=== PATIENT | female | born 1950 | race Caucasian/White ===

== ENCOUNTER 2017-05-08 00:42 | Inpatient (IN) | payer MEDICARE, OTHER ==
[~2017-05-08] VITALS: Ht 154.9 cm; Wt 65.9 kg
[2017-05-08] VITALS (14 sets, daily range): BP systolic 100–159; BP diastolic 56–82; PULSE 77–106; RESP 16–33; Ht 154.9 cm; Wt 65.9 kg
[~2017-05-08 00:42] MED LIST: ADV25050 INHALATION; ALBU18HF INH; ALPR0.254 PO; CHOL2000 PO; DOCU-144 PO; FLUT16SP17 NASAL; HYDR473S13 PO; LAS20 PO; LEVO500T72 PO; LOSA1TAB9 PO; MCN2C47 VAG; METH500T PO; NAPR-260 PO; PIRF267C PO; PRED10TA PO
[2017-05-08] MEDS ORDERED: SOD CHLORIDE 0.9% 500 ML IV STA (01:23)
[2017-05-08] MEDS ORDERED: METHYLPREDNISOLONE 125 MG INJ IV STA (01:23)
[2017-05-08] MEDS ORDERED: ALBUTEROL 0.5% (NEB) 2.5 MG/0.5 ML AMP INH STA (01:23)
[2017-05-08 01:53] LABS: ADD SCAN DIFF NO
[2017-05-08 01:55] LABS: BASOPHILS % 0.2 % (0.0-2.0); EOSINOPHILS # 0.2 10^3/ul (0.0-0.5); HEMATOCRIT 40.8 % (37.0-47.0); HEMOGLOBIN 12.8 g/dl (12.0-16.0); LYMPHOCYTES # 0.9 10^3/ul (0.8-2.9); LYMPHOCYTES % 10.3 % (15.0-51.0); MEAN CORPUSCULAR HEMOGLOBIN 30.2 pg (29.0-33.0); MEAN CORPUSCULAR HGB CONC 31.4 g/dl (32.0-37.0); MEAN CORPUSCULAR VOLUME 96.2 fl (82.0-101.0); MONOCYTE # 0.7 10^3/ul (0.3-0.9); MONOCYTES % 8.2 % (0.0-11.0); NEUTROPHILS % 78.7 % (39.0-77.0); RED BLOOD COUNT 4.24 10^6/ul (4.20-5.40); RED CELL DISTRIBUTION WIDTH 14.6 % (11.5-14.5); WHITE BLOOD COUNT 8.9 10^3/ul (4.8-10.8)
--- NOTE | 2017-05-08 02:05 | RADRPT ---
PROCEDURE: Chest. CLINICAL INDICATION: Chest pain. TECHNIQUE: Single frontal view of the chest was obtained. COMPARISON: 10/09/2016. FINDINGS: The cardiac silhouette is enlarged. The aortic arch is calcified. There are increased interstitial markings bilaterally. There is no pleural effusion. There is no pneumothorax. IMPRESSION: Interstitial pulmonary fibrosis with probable underlying interstitial edema and/or infiltrates. Cardiomegaly and aortic atherosclerosis. .Ronald Sanders MD, MD Date Time Electronically viewed and signed by .Ronald Sanders MD, MD on 05/08/2017 02:05 .T/
[2017-05-08 02:16] LABS: ANION GAP 10 (8-16); BLOOD UREA NITROGEN 17 mg/dl (7-20); CALCIUM 8.1 mg/dl (8.4-10.2); CARBON DIOXIDE 37 mmol/L (21-31); CHLORIDE 98 mmol/L (97-110); CREATININE 0.63 mg/dl (0.44-1.00); GLUCOSE 96 mg/dl (70-220); POTASSIUM 3.8 mmol/L (3.5-5.1); SODIUM 141 mmol/L (135-144)
[2017-05-08] MEDS ORDERED: ISOS20TA19 PO (02:28)
[2017-05-08] MEDS ORDERED: ASPI-664 PO (02:28)
[2017-05-08] MEDS ORDERED: LOSA100T7 PO (02:28)
[2017-05-08] MEDS ORDERED: SERT25TA83 PO (02:29)
[2017-05-08 02:35] LABS: TROPONIN-I < 0.012 ng/ml (0.00-0.12)
[2017-05-08 02:45] LABS: PLATELET COUNT 129 10^3/UL (140-415)
[2017-05-08 02:46] LABS: PLATELET ESTIMATE PLT APPEAR DECREASED
--- NOTE | 2017-05-08 02:59 | ERA ---
ER Documentation Chief Complaint Date/Time DATE: 05/08/17 TIME: 02:59 Chief Complaint SOB HPI This is 67-year-old female with past medical history of pulmonary fibrosis, COPD , essential hypertension, Vit D deficiency, GERD, DJD, Chronic Vertigo he was seen by nursing facility for low oxygen saturation. The patient is on BiPAP and oxygen saturations dropped to 75% while on BiPAP. EMS put her on CPAP and her sats went up to 95%. The patient states she has had a cough for about a week now with productive sputum. She has no chest pain no fever. On arrival she having increased work of breathing with respiratory rate in the 50s. She was put on BiPAP. Emergency department she tolerated it well ROS All systems reviewed and are negative except as per history of present illness. Medications Home Meds Active Scripts Furosemide (Lasix) 20 Mg Tab, 20 MG PO DAILY for 10 Days, TAB Prov:DARLENE THOMASON 10/16/16 Prednisone (Prednisone) 10 Mg Tab, 10 MG PO DAILY, #30 TAB 1. Take 40mg by mouth daily for 3 days 2. then 30mg by mouth daily for 3 days 3. then 20mg by mouth daily for 3 days 4. then 10mg by mouth daily for 3 days Prov:DARLENE THOMASON 10/16/16 Levofloxacin* (Levaquin*) 500 Mg Tablet, 500 MG PO DAILY@06 for 6 Days, TAB Prov:DARLENE THOMASON 10/16/16 Alprazolam* (Alprazolam*) 0.25 Mg Tablet, 0.25 MG PO Q8H Y for ANXIETY for 30 Days, TAB Prov:DARLENE THOMASON 10/16/16 Reported Medications Sertraline Hcl* (Sertraline Hcl*) 25 Mg Tablet, 25 MG PO DAILY, #30 TAB 05/08/17 Losartan Potassium* (Losartan Potassium*) 100 Mg Tablet, 100 MG PO DAILY, TAB 05/08/17 Isosorbide Dinitrate* (Isosorbide Dinitrate*) 20 Mg Tablet, 20 MG PO TID, TAB 05/08/17 Aspirin* (Aspirin* EC) 81 Mg Tablet.dr, 81 MG PO DAILY, TAB 05/08/17 Pirfenidone (Esbriet) 267 Mg Capsule, 801 MG PO TID, CAP 10/09/16 Discontinued Reported Medications Docusate Sodium* (Colace*) 100 Mg Capsule, 100 MG PO DAILY 04/09/10 Losartan-Hydrochlorothiazide (Hyzaar) 1 Tab Tablet, 1 TAB PO DAILY 04/09/10 Discontinued Scripts Fluticasone Propionate* (Fluticasone Propionate* Nasal) 50 Mcg/Struthers - 16 Gm Struthers.susp, 1 SPRAY NASAL BID, #2 Prov:DARLENE THOMASON 10/16/16 Salmeterol Xinaf/Fluticasone* (Advair*) 250-50 Diskus Inhaler, 1 INH INHALATION BID for 30 Days, #1 INHALER Prov:DARLENE THOMASON 10/16/16 Albuterol Sulfate* (Ventolin HFA*) 18 Gm Hfa.aer.ad, 2 PUFF INH Q4H Y for WHEEZING AND SOB for 30 Days Prov:DARLENE THOMASON 10/16/16 Methocarbamol* (Robaxin*) 500 Mg Tab, 500 MG PO Q8, #10 TAB Prov:DAYNA ALANIS DO 12/23/15 Naproxen* (Naprosyn*) 500 Mg Tablet, 500 MG PO BID Y for PAIN AND/OR INFLAMMATION, #30 TAB Prov:DAYNA ALANIS DO 12/23/15 Miconazole Nitrate* (Miconazole*) 1 Applic Cr, 1 APPLIC VAG DAILY, #5 1 Refill Prov:NEO SWANSON MD 07/09/15 Hydrocodone-Homatropine* (Hydrocodone-Homatropine*) 5 Ml Syrup, 5 ML PO Q6 Y for COUGH, #1 Prov:NEO SWANSON MD 07/09/15 Cholecalciferol* (Vitamin D3*) 2,000 Unit Cap, 2000 UNIT PO DAILY, #30 CAP Prov:NEO SWANSON MD 07/09/15 Allergies Allergies: Coded Allergies: Penicillins (Unverified Allergy, Mild, RASH, 05/08/17) nitrofurantoin (Unverified Allergy, Mild, rash, 05/08/17) PMhx/Soc History of Surgery: Yes (hysterectomy, R knee sx, abd hernia repair, c/sx3, gb , bilat breast reducti) Anesthesia Reaction: No Hx Neurological Disorder: Yes (CHRONIC VERTIGO) Hx Respiratory Disorders: Yes (PULMONARY FIBROSIS,COPD,O2 DEPENDENT AT HOME,) Hx Cardiac Disorders: Yes (HTN,CHF) Hx Psychiatric Problems: No Hx Miscellaneous Medical Probl: Yes (WENDY, COPD,vit D deficiency) Hx Alcohol Use: No Hx Substance Use: No Hx Tobacco Use: No Smoking Status: Former smoker FmHx Family History: No coronary disease Physical Exam Vitals Vital Signs Date Time Temp Pulse Resp B/P Pulse Ox O2 Delivery O2 Flow Rate FiO2 05/08/17 01:53 85 24 143/95 99 05/08/17 01:47 87 22 143/97 99 BIPAP 05/08/17 00:55 95 100 100 Physical Exam Const: [Well-developed, well-nourished] Head: [Atraumatic, normocephalic] Eyes: [Normal Conjunctiva, PERRLA, EOMI, normal sclera, no nystagmus] ENT: [Normal External Ears, Nose and Mouth, moist mucus membranes.] Neck: [Full range of motion. No meningismus, no lymphadenopathy.] Resp: [Decreased breath sounds bilaterally with some diffuse wheezing, increased work of breathing, moderate to severe Cardio: Regular rate and rhythm no murmurs, S1 S2 present] Abd: [Soft, non tender x 4, non distended. Normal bowel sounds, no guarding or rebound, no pulsitile abdominal masses or bruits] Skin: [No petechiae or rashes, no ecchymosis , no maculopapular rash] Back: [No midline or flank tenderness] Ext: [No cyanosis, or edema, FROM x 4, normal inspection, neurovascularly intact x 4] Neur: [Awake and alert, STR 5/5 x 4, sensation intact x 4, no focal findings, cerebellum intact] Psych: [Normal Mood and Affect] Result Diagram: 05/08/17 01305/08/17 013 Results 24 hrs Laboratory Tests Test 05/08/17 01:30 White Blood Count 8.910^3/ul Red Blood Count 4.2410^6/ul Hemoglobin 12.8g/dl Hematocrit 40.8% Mean Corpuscular Volume 96.2fl Mean Corpuscular Hemoglobin 30.2pg Mean Corpuscular Hemoglobin Concent 31.4g/dl Red Cell Distribution Width 14.6% Platelet Count 51555^3/UL Mean Platelet Volume 11.0fl Neutrophils % 78.7% Lymphocytes % 10.3% Monocytes % 8.2% Eosinophils % 2.0% Basophils % 0.2% Nucleated Red Blood Cells % 0.0/100WBC Neutrophils # 7.010^3/ul Lymphocytes # 0.910^3/ul Monocytes # 0.710^3/ul Eosinophils # 0.210^3/ul Basophils # 0.010^3/ul Nucleated Red Blood Cells # 0.010^3/ul Platelet Estimate PLT APPEAR DECREASED Sodium Level 141mmol/L Potassium Level 3.8mmol/L Chloride Level 98mmol/L Carbon Dioxide Level 37mmol/L Anion Gap 10 Blood Urea Nitrogen 17mg/dl Creatinine 0.63mg/dl Glucose Level 96mg/dl Calcium Level 8.1mg/dl Troponin I < 0.012ng/ml Current Medications Medications (Trade) Dose Ordered Sig/Asiya Route PRN Reason Start Time Stop Time Status Last Admin Dose Admin Sodium Chloride (NS) 500 ml @ 500 mls/hr Q1H STAT IV 05/08/17 01:23 05/08/17 02:22 DC 05/08/17 01:45 Albuterol (Proventil 0.5% (Neb)) 10 mg ONCE STAT INH 05/08/17 01:23 05/08/17 01:26 DC 05/08/17 01:35 Methylprednisolone Sodium Succinate 125 mg 125 mg ONCE STAT IV 05/08/17 01:23 05/08/17 01:26 DC 05/08/17 01:45 Vancomycin HCl 250 ml @ 125 mls/hr ONCE STAT IVPB 05/08/17 02:54 05/08/17 04:53 UNV Ceftriaxone Sodium (Rocephin) 50 ml @ 100 mls/hr ONCE STAT IVPB 05/08/17 02:54 05/08/17 03:23 UNV Procedures/MDM PROCEDURE: Chest. CLINICAL INDICATION: Chest pain. TECHNIQUE: Single frontal view of the chest was obtained. COMPARISON: 10/09/2016. FINDINGS: The cardiac silhouette is enlarged. The aortic arch is calcified. There are increased interstitial markings bilaterally. There is no pleural effusion. There is no pneumothorax. IMPRESSION: Interstitial pulmonary fibrosis with probable underlying interstitial edema and/ or infiltrates. Cardiomegaly and aortic atherosclerosis. .Ronald Sanders MD, MD Date Time Electronically viewed and signed by .Ronald Sanders MD, MD on 05/08/2017 02:05 .T/ CC: JAQUELINE COX DO Patient was put immediately on BiPAP on arrival Patient received IV Solu-Medrol with 1 hour of albuterol nebulizer treatment. The patient's had blood cultures and given Rocephin and vancomycin. Her BNP is currently pending. ABG is also pending. Patient is having some respiratory distress likely due to pulmonary fibrosis and COPD but has underlying interstitial edema/infiltrates. Will admit for pulmonary therapy and antibiotics. Respiratory rate is now normal. She is no longer in respiratory distress Critical Care Time: 30 minutes Treatments/Evaluations: Close monitoring and treatment of unstable vital signs, cardiorespiratory, and neurologic status, while maintaining tight balance of fluid, respiratory, and cardiac interventions. This time includes discussing the case with the patient and the patient's family. This time does not include all procedures stated elsewhere in this record. This time also includes reviewing old records, labs and radiological studies. This time includes examining and re-examining the patient. Additionally, this time also includes arranging care with admitting and consulting physicians. Departure Diagnosis: Primary Impression: Respiratory distress Additional Impressions: Pulmonary fibrosis Bilateral pulmonary infiltrates on chest x-ray Condition: Stable JAQUELINE COX DO May 08, 2017 02:59
[2017-05-08] MEDS ORDERED: VANCOMYCIN 1 GM (PMX) 250 ML IVPB ONE (03:08)
[2017-05-08] MEDS ORDERED: CEFTRIAXONE 1 GM/50 ML (PMX) 50 ML IVPB ONE (03:09)
[2017-05-08] MEDS ORDERED: ACETAMINOPHEN 325 MG TAB PO PRN ×2 (03:30→05:00)
[2017-05-08] MEDS ORDERED: ONDANSETRON 4 MG INJ IV PRN (03:30)
[2017-05-08 03:53] LABS: AADO2 Arterial 151.8 mmHg (7.0-24.0); Allen Test ACCEPTAB; Arterial Base Excess 8.5 mmol/L (-3.0-3); Arterial COHb 0.6 % (0.0-3.0); Arterial Fraction of Oxyhgb 98.1 % (93.0-99.0); Arterial HCO3 37.7 mmol/L (22.0-26.0); Arterial MetHb 0.3 % (0.0-1.5); Blood Gas IEPAP 15/5; MODE MASK - BIPAP
[2017-05-08] MEDS ORDERED: NACL 0.9% 3 ML SYG IV SCH (05:00)
--- NOTE | 2017-05-08 05:27 | HP ---
Date/Time of Note Date/Time of Note DATE: 05/08/17 TIME: 05:13 Assessment/Plan VTE Prophylaxis VTE Prophylaxis Intervention: SCD's Assessment/Plan Chief Complaint/Hosp Course This is a 59-year-old female being admitted to the telemetry floor for: 1. Acute pulmonary fibrosis exacerbation -DuoNeb's every 4 hours, Solu-Medrol IV , trend cardiac enzymes, TSH, magnesium supplemental O2 and Levaquin 2. Essential hypertension -continue medications 3. Pulmonary Fibrosis -continue home Esbriet daily 4. GERD -continue Protonix 5. Chronic Vertigo - if need be will start antivert/scopolamine 6. Anxiety: Continue SSRI and Benzo 7. DVT GI prophylaxis SCDs, Protonix Further treatment strategy as per the clinical course Problems: HPI/ROS Admit Date/Time Admit Date/Time May 08, 2017 at 03:10 Hx of Present Illness chief complaint: shortness of breath and cough for 1 week This is 67-year-old female with past medical history of pulmonary fibrosis, COPD , essential hypertension, Vit D deficiency, GERD, DJD, Chronic Vertigo she was seen by nursing facility for low oxygen saturation. The patient is on BiPAP and oxygen saturations dropped to 75% while on BiPAP. EMS put her on CPAP and her sats went up to 95%. The patient states she has had a cough for about a week now with productive sputum. She has no chest pain no fever. On arrival she having increased work of breathing with respiratory rate in the 50s. She was put on BiPAP in Emergency department she tolerated it well. On my examination, patient appeared more comfortable on the bipap. She was in relatively good spirits. allergies: pcn, nitrofurantoin meds: see [facility] HIGH Const: As per HPI Eyes : No pain discharge or redness or change in visual acuity ENT: No pain, sore throat, congestion, congestion, dysphagia or discharge Respiratory: As per HPI Cardiovascular: No chest pain, palpitation, PND, or edema GI : no change in appetite, abdominal pain, nausea, vomiting, diarrhea, constipation, or change in the color his stool Genitourinary: No dysuria, hematuria, flank pain , discharge or CVA tenderness Musculoskeletal: No joint pain, back pain, neck pain, restricted range of motion in neck or joints Skin: No rash, bruising or hives Neuro: No headache, dizziness, syncope, seizure, focal weakness Endocrine: No polyuria, polydipsia, temperature intolerance Psych: No hallucination, depression, anxiety or suicidal ideation PMH/Family/Social Past Medical History pulmonary fibrosis, COPD, essential hypertension, Vit D deficiency, GERD, DJD, Chronic Vertigo, Vit D deficiency Past Surgical History ectopic , hysterectomy, umbilical hernia repair Family History Significant Family History: no pertinent family hx (25 years ago approximately) Social History Smoking Status: Former smoker (15 years ago) Exam/Review of Systems Vital Signs Vitals Vital Signs Date Time Temp Pulse Resp B/P Pulse Ox O2 Delivery O2 Flow Rate FiO2 05/08/17 04:45 103 98 40 05/08/17 03:33 30 150/80 BIPAP 05/08/17 03:00 5.0 Intake and Output 05/07/17 05/07/17 05/08/17 15:00 23:00 07:00 Output Total 100 ml Balance -100 ml Exam Exam General: Patient is well-developed female in mild respiratory distress. HEENT: Atraumatic, normocephalic. The pupils are equal, round and reactive. Extraocular motor are intact, currently on BiPAP Neck: Supple with full range of motion. No rigidity or meningismus Chest: Nontender Lungs: Coarse breath sounds throughout the lung javed, crackles Heart: Normal S1-S2, Regular rhythm and rate. No murmur, S3, or S4 Abdomen: Soft , nontender, nondistended , bowel sounds are present. No guarding no rebound tenderness , No masses or organomegaly. No costovertebral temporal angle mass Extremities: Normal to inspection, no edema no cyanosis Neurologic: Normal mental status, speech normal, cranial nerves II through XII are intact, motor and sensory are intact, no focal weakness Additional Comments PROCEDURE: Chest. CLINICAL INDICATION: Chest pain. TECHNIQUE: Single frontal view of the chest was obtained. COMPARISON: 10/09/2016. FINDINGS: The cardiac silhouette is enlarged. The aortic arch is calcified. There are increased interstitial markings bilaterally. There is no pleural effusion. There is no pneumothorax. IMPRESSION: Interstitial pulmonary fibrosis with probable underlying interstitial edema and/ or infiltrates. Cardiomegaly and aortic atherosclerosis. .Ronald Sanders MD, Date Time Electronically viewed and signed by .Ronald Sanders MD, on 05/08/2017 02:05 Labs Result Diagram: 05/08/17 0130 05/08/17 0130 Medications Medications Current Medications Methylprednisolone Sodium Succinate (Solu-Medrol) 40 mg Q8 IV ; Start 05/08/17 at 06:00 Ondansetron HCl (Zofran Inj) 4 mg Q6H PRN IV NAUSEA AND/OR VOMITING; Start at 05:00 Acetaminophen (Tylenol Tab) 650 mg Q6H PRN PO PAIN LEVEL 1-3 OR FEVER; Start at 05:00 Pantoprazole 40 mg 40 mg BID@06,18 IV ; Start 05/08/17 at 06:00 Vancomycin HCl (Vancocin) 250 ml @ 125 mls/hr Q24H IVPB ; Start 05/08/17 at 06: 00; Stop 05/08/17 at 07:59 SOHA KOWALSKI May 08, 2017 05:26
[2017-05-08] MEDS ORDERED: VANCOMYCIN 1 GM in NS 250 ML IVPB ONE (06:00)
[2017-05-08] MEDS ORDERED: METHYLPREDNISOLONE 40 MG INJ IV SCH (06:00)
[2017-05-08] MEDS ORDERED: FUROSEMIDE 20 MG TAB PO SCH (06:00)
[2017-05-08] MEDS ORDERED: PANTOPRAZOLE 40 MG INJ IV SCH (06:00)
[2017-05-08] MEDS ORDERED: LEVOFLOXACIN 750MG/D5W (PMX) 150 ML IVPB SCH (06:00)
[2017-05-08] MEDS ORDERED: FUROSEMIDE 20 MG INJ IV ONE (07:00)
[2017-05-08] MEDS ORDERED: [UNRECOGNIZED DRUG - REMARK] XX SCH (08:00)
[2017-05-08 08:07] LABS: AADO2 Arterial 112.7 mmHg (7.0-24.0); Allen Test ACCEPTAB; Arterial Base Excess 4.5 mmol/L (-3.0-3); Arterial Fraction of Oxyhgb 96.8 % (93.0-99.0); Arterial HCO3 31.6 mmol/L (22.0-26.0); Arterial MetHb 0.1 % (0.0-1.5); Arterial Total Hemglobin 13.9 g/dl (12.0-18.0); Blood Gas IEPAP 15/5; MODE MASK - BIPAP
[2017-05-08] MEDS: ALBUTEROL/IPRATROPIUM (NEB) 3 ML AMP HHN SCH ×4 (08:53→20:23)
[2017-05-08] MEDS: SERTRALINE 50 MG TAB PO SCH (09:12)
[2017-05-08] MEDS: LOSARTAN 50 MG TAB PO SCH (09:13)
[2017-05-08] MEDS: ISOSORBIDE DINITRATE 20 MG TAB PO SCH ×3 (09:13→20:38)
[2017-05-08] MEDS: ASPIRIN (EC) 81 MG TAB PO SCH (09:13)
--- NOTE | 2017-05-08 10:43 | PN ---
Date/Time of Note Date/Time of Note DATE: 05/08/17 TIME: 10:39 Assessment/Plan VTE Prophylaxis VTE Prophylaxis Intervention: SCD's Lines/Catheters IV [facility] Saline Lock Urinary Cath still in place: No Assessment/Plan Assessment/Plan 67 yo F with IPF on chronic home oxygen therapy presents with 4 days of increased SOB and acute on chronic hypoxia. PLAN -pulm consult for help with IPF management I ordered a high res CT chest with contrast to eval for PE and worsening of IPF, strep urine Ag, and RVP -cont empiric abx, cont steroid burst - check TSH given ?thyromegaly? -check UA/Urine culture given c/o dysuria cont home meds Subjective 24 Hr Interval Summary Free Text/Dictation Pt on 3L NC at home. States her breathing has been more short than usual for the past 4 days. Also reporting several days of dysuria. Exam/Review of Systems Vital Signs Vitals Vital Signs Date Time Temp Pulse Resp B/P Pulse Ox O2 Delivery O2 Flow Rate FiO2 05/08/17 09:08 77 05/08/17 08:54 18 95 Nasal Cannula 3.0 05/08/17 08:00 98.0 159/82 05/08/17 04:45 40 Intake and Output 05/07/17 05/07/17 05/08/17 15:00 23:00 07:00 Intake Total 200 ml Output Total 100 ml Balance 100 ml Exam mild distress, sitting at side of best soft freely mobile mass at inf neck--?thyroid? no mrg fine crackles abd soft no rashes Results Result Diagram: 05/08/17 0130 05/08/17 0130 Results 24 hrs Laboratory Tests Test 05/08/17 01:30 05/08/17 03:38 05/08/17 07:00 White Blood Count 8.9 Red Blood Count 4.24 Hemoglobin 12.8 Hematocrit 40.8 Mean Corpuscular Volume 96.2 Mean Corpuscular Hemoglobin 30.2 Mean Corpuscular Hemoglobin Concent 31.4 L Red Cell Distribution Width 14.6 H Platelet Count 129 L Mean Platelet Volume 11.0 #H Neutrophils % 78.7 H Lymphocytes % 10.3 L Monocytes % 8.2 Eosinophils % 2.0 Basophils % 0.2 Nucleated Red Blood Cells % 0.0 Neutrophils # 7.0 Lymphocytes # 0.9 Monocytes # 0.7 Eosinophils # 0.2 Basophils # 0.0 Nucleated Red Blood Cells # 0.0 Platelet Estimate PLT APPEAR DECREASED Sodium Level 141 Potassium Level 3.8 Chloride Level 98 Carbon Dioxide Level 37 H Anion Gap 10 Blood Urea Nitrogen 17 Creatinine 0.63 Glucose Level 96 Calcium Level 8.1 L Troponin I < 0.012 B-Type Natriuretic Peptide 178 H Blood Gas Specimen Source Blood arterial Blood arterial Arterial Blood Date Drawn 05/08/2017 3:42:19 AM 05/08/2017 7:50:13 AM Arterial Blood pH (Temp corrected) 7.318 L 7.359 Arterial Blood pCO2 (Temp correct) 75.2 H 57.3 H Arterial Blood pO2 (Temp corrected) 193.3 H 106.6 H Arterial Blood HCO3 37.7 H 31.6 H Arterial Blood Base Excess 8.5 H 4.5 H Arterial Blood Oxygen Saturation 99.0 H 97.9 [place] Test ACCEPTAB ACCEPTAB Arterial Blood Gas Puncture Site Right Radial Left Radial Arterial Blood Carboxyhemoglobin 0.6 1.0 Arterial Blood Methemoglobin 0.3 0.1 Blood Gas A-a O2 Differential 151.8 H 112.7 H Oxyhemoglobin Percent 98.1 96.8 Total Hemoglobin 14.0 13.9 Blood Gas Temperature 37.0 37.0 Blood Gas Respiration Rate 14.0 14.0 Blood Gas Actual Respiration Rate 40 31 Blood Gas Modality MASK - BIPAP MASK - BIPAP FiO2 60.0 40.0 Blood Gas Inspiratory Time 1.0 Blood Gas IPAP/EPAP Ratio 15 15 Blood Gas Notified Whom SHALINI MCKAY Blood Gas Notified Time 05/08/2017 3:53:16 AM 05/08/2017 8:06:57 AM Medications Medications Current Medications Ondansetron HCl (Zofran Inj) 4 mg Q6H PRN IV NAUSEA AND/OR VOMITING; Start at 05:00 Acetaminophen (Tylenol Tab) 650 mg Q6H PRN PO PAIN LEVEL 1-3 OR FEVER; Start at 05:00 Alprazolam (Xanax) 0.25 mg Q8H PRN PO ANXIETY; Start 05/08/17 at 05:30 Aspirin (Halfprin) 81 mg DAILY PO Last administered on 05/08/17t 09:13; Admin Dose 81 MG; Start 05/08/17 at 09:00 Furosemide (Lasix) 20 mg DAILY@06 PO ; Start 05/08/17 at 06:00; Status Future Hold Isosorbide Dinitrate (Isordil) 20 mg TID PO Last administered on 05/08/17 09: 13; Admin Dose 20 MG; Start 05/08/17 at 09:00 Losartan Potassium (Cozaar) 100 mg DAILY PO Last administered on 05/08/17 09: 13; Admin Dose 100 MG; Start 05/08/17 at 09:00 Sertraline HCl (Zoloft) 25 mg DAILY PO Last administered on 05/08/17 09:12; Admin Dose 25 MG; Start 05/08/17 at 09:00 Patient Own Medication 3 ea TID PO ; Start 05/08/17 at 13:00 Prednisone (Prednisone) 40 mg DAILY PO ; Start 05/09/17 at 09:00 Levofloxacin (Levaquin) 750 mg DAILY@06 PO ; Start 05/09/17 at 06:00 EDNA DELUCA MD May 08, 2017 10:43
--- NOTE | 2017-05-08 10:45 | CONS ---
Date/Time of Note Date/Time of Note DATE: 05/08/17 TIME: 10:41 Assessment/Plan Assessment/Plan Additional Assessment/Plan Chest x-ray was reviewed from today which is showing diffuse fibrosis. Assessment recommendations; 1. Patient admitted with flareup of pulmonary fibrosis currently on appropriate treatment regimen. 2. Other multiple comorbidities including hypertension, COPD, depression. Continue current treatment. Use BiPAP as needed. Consultation Date/Type/Reason Admit Date/Time May 08, 2017 at 03:10 Date of Consultation: May 08, 2017 Type of Consultation: Pulmonary Reason for Consultation Pulmonary consultation requested for evaluation of shortness of breath due to pulmonary fibrosis. History of presenting illness; patient is a pleasant 67-year-old lady who came into the hospital today with a few days history of increasing shortness of breath. Patient also has a pulse oximeter at home which was registering saturation of around 70-77%. Upon evaluation here patient was diagnosed with flareup of pulmonary fibrosis and was started on BiPAP as well as intravenous Solu-Medrol with significant improvement in symptoms. Patient has been weaned off BiPAP and is currently maintained on nasal cannula. According to patient she is feeling better since admission. Denies any high fever chills, sputum production. Past medical history; 1. Patient with history of pulmonary fibrosis. 2. Hypertension. 3. Depression. 4. Status post hysterectomy. 5. History of umbilical hernia repair. 6. COPD. Medications; reviewed. Allergies; penicillin and nitrofurantoin. Social history; patient quit smoking 15 years ago. Family history; noncontributory. Occupational history; patient has a miscellaneous occupations in the past. Review systems; denies any headache, seizures. Any sinus symptoms. Any chest pain. Shortness of breath is improving. Denies any cough or wheezing. Denies any sputum production. Denies any hemoptysis. Denies any abdominal pain nausea vomiting. Complains of chronic orthopnea. Chronic dyspnea on minimal exertion. Denies any weight change. Denies any melena or hematochezia. General exam; elderly woman, awake alert currently in no distress. Social History Smoking Status: Former smoker (15 years ago) Exam/Review of Systems Vital Signs Vitals Vital Signs Date Time Temp Pulse Resp B/P Pulse Ox O2 Delivery O2 Flow Rate FiO2 05/08/17 09:08 77 05/08/17 08:54 18 95 Nasal Cannula 3.0 05/08/17 08:00 98.0 159/82 05/08/17 04:45 40 Intake and Output 05/07/17 05/07/17 05/08/17 15:00 23:00 07:00 Intake Total 200 ml Output Total 100 ml Balance 100 ml Exam HEENT exam; supple neck, no JVD. No lymphadenopathy. Midline trachea. No thyromegaly. Patient has fair dentition. Pupils are midsize and reactive to light bilaterally. Chest exam; diminished breath sounds throughout with bilateral crackles. S1-S2 audible, no murmurs. Regular rhythm. Abdomen exam; soft, there are multiple well-healed scars present. Umbilicus is flat. Bowel sounds audible. No organomegaly felt. Extremity exam; no peripheral edema. Pulses 1+ bilaterally. No clubbing. 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 Results Result Diagram: 05/08/17 0130 05/08/17 0130 Results 24 hrs Laboratory Tests Test 05/08/17 01:30 05/08/17 03:38 05/08/17 07:00 White Blood Count 8.9 Red Blood Count 4.24 Hemoglobin 12.8 Hematocrit 40.8 Mean Corpuscular Volume 96.2 Mean Corpuscular Hemoglobin 30.2 Mean Corpuscular Hemoglobin Concent 31.4 L Red Cell Distribution Width 14.6 H Platelet Count 129 L Mean Platelet Volume 11.0 #H Neutrophils % 78.7 H Lymphocytes % 10.3 L Monocytes % 8.2 Eosinophils % 2.0 Basophils % 0.2 Nucleated Red Blood Cells % 0.0 Neutrophils # 7.0 Lymphocytes # 0.9 Monocytes # 0.7 Eosinophils # 0.2 Basophils # 0.0 Nucleated Red Blood Cells # 0.0 Platelet Estimate PLT APPEAR DECREASED Sodium Level 141 Potassium Level 3.8 Chloride Level 98 Carbon Dioxide Level 37 H Anion Gap 10 Blood Urea Nitrogen 17 Creatinine 0.63 Glucose Level 96 Calcium Level 8.1 L Troponin I < 0.012 B-Type Natriuretic Peptide 178 H Blood Gas Specimen Source Blood arterial Blood arterial Arterial Blood Date Drawn 05/08/2017 3:42:19 AM 05/08/2017 7:50:13 AM Arterial Blood pH (Temp corrected) 7.318 L 7.359 Arterial Blood pCO2 (Temp correct) 75.2 H 57.3 H Arterial Blood pO2 (Temp corrected) 193.3 H 106.6 H Arterial Blood HCO3 37.7 H 31.6 H Arterial Blood Base Excess 8.5 H 4.5 H Arterial Blood Oxygen Saturation 99.0 H 97.9 [place]aine Test ACCEPTAB ACCEPTAB Arterial Blood Gas Puncture Site Right Radial Left Radial Arterial Blood Carboxyhemoglobin 0.6 1.0 Arterial Blood Methemoglobin 0.3 0.1 Blood Gas A-a O2 Differential 151.8 H 112.7 H Oxyhemoglobin Percent 98.1 96.8 Total Hemoglobin 14.0 13.9 Blood Gas Temperature 37.0 37.0 Blood Gas Respiration Rate 14.0 14.0 Blood Gas Actual Respiration Rate 40 31 Blood Gas Modality MASK - BIPAP MASK - BIPAP FiO2 60.0 40.0 Blood Gas Inspiratory Time 1.0 Blood Gas IPAP/EPAP Ratio 24/03 24/03 Blood Gas Notified Whom SHALINI MCKAY Blood Gas Notified Time 05/08/2017 3:53:16 AM 05/08/2017 8:06:57 AM Medications Medications Current Medications Ondansetron HCl (Zofran Inj) 4 mg Q6H PRN IV NAUSEA AND/OR VOMITING; Start at 05:00 Acetaminophen (Tylenol Tab) 650 mg Q6H PRN PO PAIN LEVEL 1-3 OR FEVER; Start at 05:00 Alprazolam (Xanax) 0.25 mg Q8H PRN PO ANXIETY; Start 05/08/17 at 05:30 Aspirin (Halfprin) 81 mg DAILY PO Last administered on 05/08/17 09:13; Admin Dose 81 MG; Start 05/08/17 at 09:00 Furosemide (Lasix) 20 mg DAILY@06 PO ; Start 05/08/17 at 06:00; Status Future Hold Isosorbide Dinitrate (Isordil) 20 mg TID PO Last administered on 05/08/17 09: 13; Admin Dose 20 MG; Start 05/08/17 at 09:00 Losartan Potassium (Cozaar) 100 mg DAILY PO Last administered on 05/08/17 09: 13; Admin Dose 100 MG; Start 05/08/17 at 09:00 Sertraline HCl (Zoloft) 25 mg DAILY PO Last administered on 05/08/17 09:12; Admin Dose 25 MG; Start 05/08/17 at 09:00 Patient Own Medication 3 ea TID PO ; Start 05/08/17 at 13:00 Prednisone (Prednisone) 40 mg DAILY PO ; Start 05/09/17 at 09:00 Levofloxacin (Levaquin) 750 mg DAILY@06 PO ; Start 05/09/17 at 06:00 BREA PETERSON May 08, 2017 10:45
[2017-05-08 12:52] LABS: CREATINE KINASE 20 IU/L (23-200)
[2017-05-08 13:05] LABS: CK-MB 0.95 ng/ml (0.0-2.4)
[2017-05-08 13:08] LABS: TROPONIN-I < 0.012 ng/ml (0.00-0.12)
[2017-05-08 13:10] LABS: AADO2 Arterial 47.7 mmHg (7.0-24.0); Allen Test ACCEPTAB; Arterial Base Excess 9.3 mmol/L (-3.0-3); Arterial COHb 0.7 % (0.0-3.0); Arterial Fraction of Oxyhgb 95.3 % (93.0-99.0); Arterial HCO3 37.2 mmol/L (22.0-26.0); Arterial MetHb 0.2 % (0.0-1.5); Arterial Total Hemglobin 14.3 g/dl (12.0-18.0); MODE NASAL CANNULA
[2017-05-08] MEDS: PIRFENIDONE 267 MG PO SCH ×2 (13:48→20:38)
[2017-05-08 16:51] LABS: ADD UMIC YES; UR ASCORBIC ACID NEGATIVE (NEGATIVE); UR BILIRUBIN (Dip) NEGATIVE (NEGATIVE); UR BLOOD (Dip) 3+ mg/dL (NEGATIVE); UR CLARITY CLEAR (CLEAR); UR COLOR YELLOW (YELLOW); UR GLUCOSE (Dip) 1+ mg/dL (NEGATIVE); UR KETONES (Dip) NEGATIVE (NEGATIVE); UR LEUKOCYTE ESTERASE (Dip) 1+ Leu/ul (NEGATIVE); UR NITRITE (Dip) NEGATIVE (NEGATIVE); UR RBC 33 /HPF (0-5); UR SPECIFIC GRAVITY (Dip) 1.015 (1.003-1.030); UR SQUAMOUS EPITHELIAL CELL FEW /HPF (FEW); UR TOTAL PROTEIN (Dip) NEGATIVE (NEGATIVE); UR UROBILINOGEN (Dip) NEGATIVE (NEGATIVE)
[2017-05-08 18:50] LABS: CREATINE KINASE < 20 IU/L (23-200)
[2017-05-08 19:02] LABS: CK-MB 0.85 ng/ml (0.0-2.4)
[2017-05-08 19:03] LABS: TROPONIN-I < 0.012 ng/ml (0.00-0.12)
--- NOTE | 2017-05-08 19:04 | RADRPT ---
PROCEDURE: XR Chest. CLINICAL INDICATION: Shortness of breath. TECHNIQUE: Single frontal view. COMPARISON: 05/08/2017. 0149 hours. FINDINGS: There are are extremely low lung volumes bilaterally as seen previously. There is bilateral intersti tial pulmonary disease consistent with pulmonary fibrosis. The heart is mildly enlarged. There is calcification in the aorta consistent with atherosclerosis. There is no pleural effusion. There is no pneumothorax. IMPRESSION: 1. Low lung volumes and pulmonary fibrosis. 2. Cardiomegaly and atherosclerosis. RPTAT: QQ .Enoc Harris MD, MD Date Time Electronically viewed and signed by .Enoc Harris MD, MD on 05/08/2017 19:03 .R/
[2017-05-09] VITALS (15 sets, daily range): BP systolic 112–124; BP diastolic 59–74; PULSE 75–107; RESP 12–24
[2017-05-09] MEDS: ALBUTEROL/IPRATROPIUM (NEB) 3 ML AMP HHN SCH ×6 (01:21→20:45)
[2017-05-09] MEDS ORDERED: LEVOFLOXACIN 750 MG TABLET PO SCH (06:00)
[2017-05-09 07:25] LABS: BASOPHILS % 0.1 % (0.0-2.0); EOSINOPHILS % 0.4 % (0.0-7.0); HEMATOCRIT 36.4 % (37.0-47.0); HEMOGLOBIN 11.5 g/dl (12.0-16.0); LYMPHOCYTES # 1.2 10^3/ul (0.8-2.9); LYMPHOCYTES % 15.5 % (15.0-51.0); MEAN CORPUSCULAR HEMOGLOBIN 30.7 pg (29.0-33.0); MEAN CORPUSCULAR HGB CONC 31.6 g/dl (32.0-37.0); MEAN CORPUSCULAR VOLUME 97.1 fl (82.0-101.0); MONOCYTE # 0.6 10^3/ul (0.3-0.9); MONOCYTES % 7.6 % (0.0-11.0); NEUTROPHIL # 5.7 10^3/ul (1.6-7.5); PLATELET COUNT 126 10^3/UL (140-415); RED BLOOD COUNT 3.75 10^6/ul (4.20-5.40); RED CELL DISTRIBUTION WIDTH 14.9 % (11.5-14.5); WHITE BLOOD COUNT 7.5 10^3/ul (4.8-10.8)
[2017-05-09 07:29] LABS: ADD SCAN DIFF NO
[2017-05-09 08:05] LABS: ALBUMIN 3.6 g/dl (3.3-4.9); ALBUMIN/GLOBULIN RATIO 1.44; BILIRUBIN,INDIRECT 0.1 mg/dl (0-1.1); BILIRUBIN,TOTAL 0.1 mg/dl (0.2-1.3); CALCIUM 8.7 mg/dl (8.4-10.2); CREATININE 0.78 mg/dl (0.44-1.00); MAGNESIUM 1.6 mg/dl (1.7-2.5); POTASSIUM 3.9 mmol/L (3.5-5.1); TOTAL PROTEIN 6.1 g/dl (6.1-8.1)
--- NOTE | 2017-05-09 09:10 | RADRPT ---
PROCEDURE: XR Chest 1 view. CLINICAL INDICATION: Shortness of breath TECHNIQUE: AP views of the chest was obtained. COMPARISON: Yesterday FINDINGS: The heart is large. Calcified atherosclerosis is noted in the aorta. Elevation right hemidiaphragm is unchanged. The lungs are hypoinflated. Diffuse interstitial prominence in both lungs appears st able. Patchy alveolar infiltrates in the left lower lobe are unchanged. Atelectasis is seen at the right lung base. The osseous structures are unchanged. IMPRESSION: Cardiomegaly with calcified atherosclerosis in the aorta. Hypoinflated lungs with stable elevation of the right hemidiaphragm. Stable patchy infiltrates in the left lower lobe. Stable diffuse interstitial prominence in both lungs. Atelectasis at the right lung base. RPTAT: AA .Julian Soto MD, MD Date Time Electronically viewed and signed by .Julian Soto MD, MD on 05/09/2017 09:10 .P/
--- NOTE | 2017-05-09 09:19 | CONS ---
Date/Time of Note Date/Time of Note DATE: 05/09/17 TIME: 09:18 Assessment/Plan Assessment/Plan Additional Assessment/Plan Assessment and recommendations; 1. Patient admitted with flare up of primary fibrosis with significant clinical improvement. 2. History of COPD and depression. Continue current treatment. Consultation Date/Type/Reason Admit Date/Time May 08, 2017 at 03:10 Initial Consult Date 05/08/17 Type of Consultation: Pulmonary 24 HR Interval Summary Free Text/Dictation Patient condition stable. Reports decreased shortness of breath. Denies any coughing, wheezing. General exam; elderly woman, awake alert currently in no distress. Exam/Review of Systems Vital Signs Vitals Vital Signs Date Time Temp Pulse Resp B/P Pulse Ox O2 Delivery O2 Flow Rate FiO2 05/09/17 08:37 98.0 92 18 112/59 98 05/09/17 05:29 40 05/08/17 20:23 4.0 05/08/17 20:23 Nasal Cannula Intake and Output 05/08/17 05/08/17 05/09/17 15:00 23:00 07:00 Intake Total 300 ml 200 ml Balance 300 ml 200 ml Exam HEENT exam; supple neck, no JVD. No lymphadenopathy. Midline trachea. No thyromegaly. Patient has fair dentition. Pupils are small bilaterally. No neck masses. Chest exam; scattered crackles bilaterally. S1-S2 audible, no murmurs. Regular rhythm. Exam; soft, no organomegaly. Nontender. No distention. Bowel sounds audible. Extremity exam; no peripheral edema. No clubbing. Pulses 1+ bilaterally. 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 Results Result Diagram: 05/09/17 0640 05/09/17 0640 Results 24 hrs Laboratory Tests Test 05/08/17 12:09 05/08/17 13:00 05/08/17 15:00 05/08/17 18:00 Creatine Kinase 20 L < 20 L Creatine Kinase Index 4.8 Creatinine Kinase MB (Mass) 0.95 0.85 Troponin I < 0.012 < 0.012 Blood Gas Specimen Source Blood arterial Arterial Blood Date Drawn 05/08/2017 1:00:44 PM Arterial Blood pH (Temp corrected) 7.372 Arterial Blood pCO2 (Temp correct) 65.6 H Arterial Blood pO2 (Temp corrected) 89.1 Arterial Blood HCO3 37.2 H Arterial Blood Base Excess 9.3 H Arterial Blood Oxygen Saturation 96.2 Blaine Test ACCEPTAB Arterial Blood Gas Puncture Site Right Radial Arterial Blood Carboxyhemoglobin 0.7 Arterial Blood Methemoglobin 0.2 Blood Gas A-a O2 Differential 47.7 H Oxyhemoglobin Percent 95.3 Total Hemoglobin 14.3 Blood Gas Temperature 37.0 Blood Gas Modality NASAL CANNULA FiO2 30.0 Blood Gas Notified Whom JLD Blood Gas Notified Time 05/08/2017 1:10:24 PM Urine Color YELLOW Urine Clarity CLEAR Urine pH 7.0 Urine Specific [place] 1.015 Urine Ketones NEGATIVE Urine Nitrite NEGATIVE Urine Bilirubin NEGATIVE Urine Urobilinogen NEGATIVE Urine Leukocyte Esterase 1+ H Urine Microscopic RBC 33 H Urine Microscopic WBC 2 Urine Squamous Epithelial Cells FEW Urine Hemoglobin 3+ H Urine Glucose 1+ H Urine Total Protein NEGATIVE Test 05/09/17 06:40 White Blood Count 7.5 Red Blood Count 3.75 L Hemoglobin 11.5 L Hematocrit 36.4 L Mean Corpuscular Volume 97.1 Mean Corpuscular Hemoglobin 30.7 Mean Corpuscular Hemoglobin Concent 31.6 L Red Cell Distribution Width 14.9 H Platelet Count 126 L Mean Platelet Volume 11.0 H Neutrophils % 76.0 Lymphocytes % 15.5 Monocytes % 7.6 Eosinophils % 0.4 Basophils % 0.1 Nucleated Red Blood Cells % 0.0 Neutrophils # 5.7 Lymphocytes # 1.2 Monocytes # 0.6 Eosinophils # 0.0 Basophils # 0.0 Nucleated Red Blood Cells # 0.0 Sodium Level 141 Potassium Level 3.9 Chloride Level 96 L Carbon Dioxide Level 40 H Anion Gap 9 Blood Urea Nitrogen 17 Creatinine 0.78 Glucose Level 91 Calcium Level 8.7 Magnesium Level 1.6 L Total Bilirubin 0.1 L Direct Bilirubin 0.00 Indirect Bilirubin 0.1 Aspartate Amino Transf (AST/SGOT) 21 Alanine Aminotransferase (ALT/SGPT) 25 Alkaline Phosphatase 40 L Total Protein 6.1 Albumin 3.6 Globulin 2.50 Albumin/Globulin Ratio 1.44 Thyroid Stimulating Hormone (TSH) 2.090 Medications Medications Current Medications Ondansetron HCl (Zofran Inj) 4 mg Q6H PRN IV NAUSEA AND/OR VOMITING; Start at 05:00 Acetaminophen (Tylenol Tab) 650 mg Q6H PRN PO PAIN LEVEL 1-3 OR FEVER; Start at 05:00 Alprazolam (Xanax) 0.25 mg Q8H PRN PO ANXIETY; Start 05/08/17 at 05:30 Aspirin (Halfprin) 81 mg DAILY PO Last administered on 05/08/17 09:13; Admin Dose 81 MG; Start 05/08/17 at 09:00 Furosemide (Lasix) 20 mg DAILY@06 PO ; Start 05/08/17 at 06:00; Status Future Hold Isosorbide Dinitrate (Isordil) 20 mg TID PO Last administered on 05/08/17 20: 38; Admin Dose 20 MG; Start 05/08/17 at 09:00 Losartan Potassium (Cozaar) 100 mg DAILY PO Last administered on 05/08/17 09: 13; Admin Dose 100 MG; Start 05/08/17 at 09:00 Sertraline HCl (Zoloft) 25 mg DAILY PO Last administered on 05/08/17 09:12; Admin Dose 25 MG; Start 05/08/17 at 09:00 Patient Own Medication 3 ea TID PO Last administered on 05/08/17 20:38; Admin Dose 3 EA; Start 05/08/17 at 13:00 Prednisone (Prednisone) 40 mg DAILY PO ; Start 05/09/17 at 09:00 Levofloxacin (Levaquin) 750 mg DAILY@06 PO Last administered on 05/09/17 06:23 ; Admin Dose 750 MG; Start 05/09/17 at 06:00 BREA PETERSON May 09, 2017 09:19
[2017-05-09] MEDS: LOSARTAN 50 MG TAB PO SCH (09:33)
[2017-05-09] MEDS: predniSONE 20 MG TAB PO SCH (09:33)
[2017-05-09] MEDS: ISOSORBIDE DINITRATE 20 MG TAB PO SCH ×3 (09:33→21:25)
[2017-05-09] MEDS: PIRFENIDONE 267 MG PO SCH ×3 (09:33→21:24)
[2017-05-09] MEDS: SERTRALINE 50 MG TAB PO SCH (09:33)
[2017-05-09] MEDS: ASPIRIN (EC) 81 MG TAB PO SCH (09:33)
--- NOTE | 2017-05-09 13:52 | PN ---
Date/Time of Note Date/Time of Note DATE: 05/09/17 TIME: 13:51 Assessment/Plan VTE Prophylaxis VTE Prophylaxis Intervention: SCD's Lines/Catheters IV [facility] Saline Lock Urinary Cath still in place: No Assessment/Plan Assessment/Plan 67 yo F with IPF on chronic home oxygen therapy presents with 4 days of increased SOB and acute on chronic hypoxia. PLAN -pulm consult for help with IPF management -cont empiric abx, cont steroid burst TSH nl, check thyroid US #dysuria: urine culture negative cont home meds Subjective 24 Hr Interval Summary Free Text/Dictation Doing about the same Exam/Review of Systems Vital Signs Vitals Vital Signs Date Time Temp Pulse Resp B/P Pulse Ox O2 Delivery O2 Flow Rate FiO2 05/09/17 12:25 89 05/09/17 11:44 98.0 24 113/59 93 05/09/17 05:29 40 05/08/17 20:23 4.0 05/08/17 20:23 Nasal Cannula Intake and Output 05/08/17 05/08/17 05/09/17 15:00 23:00 07:00 Intake Total 300 ml 200 ml Balance 300 ml 200 ml Exam sitting at edge of bed, wearing NC no mrg lungs with fine crackles abd soft no rashes Results Result Diagram: 05/09/17 0640 05/09/17 0640 Results 24 hrs Laboratory Tests Test 05/08/17 15:00 05/08/17 18:00 05/09/17 06:40 Urine Color YELLOW Urine Clarity CLEAR Urine pH 7.0 Urine Specific [place] 1.015 Urine Ketones NEGATIVE Urine Nitrite NEGATIVE Urine Bilirubin NEGATIVE Urine Urobilinogen NEGATIVE Urine Leukocyte Esterase 1+ H Urine Microscopic RBC 33 H Urine Microscopic WBC 2 Urine Squamous Epithelial Cells FEW Urine Hemoglobin 3+ H Urine Glucose 1+ H Urine Total Protein NEGATIVE Creatine Kinase < 20 L Creatine Kinase Index Creatinine Kinase MB (Mass) 0.85 Troponin I < 0.012 White Blood Count 7.5 Red Blood Count 3.75 L Hemoglobin 11.5 L Hematocrit 36.4 L Mean Corpuscular Volume 97.1 Mean Corpuscular Hemoglobin 30.7 Mean Corpuscular Hemoglobin Concent 31.6 L Red Cell Distribution Width 14.9 H Platelet Count 126 L Mean Platelet Volume 11.0 H Neutrophils % 76.0 Lymphocytes % 15.5 Monocytes % 7.6 Eosinophils % 0.4 Basophils % 0.1 Nucleated Red Blood Cells % 0.0 Neutrophils # 5.7 Lymphocytes # 1.2 Monocytes # 0.6 Eosinophils # 0.0 Basophils # 0.0 Nucleated Red Blood Cells # 0.0 Sodium Level 141 Potassium Level 3.9 Chloride Level 96 L Carbon Dioxide Level 40 H Anion Gap 9 Blood Urea Nitrogen 17 Creatinine 0.78 Glucose Level 91 Calcium Level 8.7 Magnesium Level 1.6 L Total Bilirubin 0.1 L Direct Bilirubin 0.00 Indirect Bilirubin 0.1 Aspartate Amino Transf (AST/SGOT) 21 Alanine Aminotransferase (ALT/SGPT) 25 Alkaline Phosphatase 40 L Total Protein 6.1 Albumin 3.6 Globulin 2.50 Albumin/Globulin Ratio 1.44 Thyroid Stimulating Hormone (TSH) 2.090 Medications Medications Current Medications Ondansetron HCl (Zofran Inj) 4 mg Q6H PRN IV NAUSEA AND/OR VOMITING; Start at 05:00 Acetaminophen (Tylenol Tab) 650 mg Q6H PRN PO PAIN LEVEL 1-3 OR FEVER; Start at 05:00 Alprazolam (Xanax) 0.25 mg Q8H PRN PO ANXIETY; Start 05/08/17 at 05:30 Aspirin (Halfprin) 81 mg DAILY PO Last administered on 05/09/17 09:33; Admin Dose 81 MG; Start 05/08/17 at 09:00 Furosemide (Lasix) 20 mg DAILY@06 PO ; Start 05/08/17 at 06:00; Status Future Hold Isosorbide Dinitrate (Isordil) 20 mg TID PO Last administered on 05/09/17 09: 33; Admin Dose 20 MG; Start 05/08/17 at 09:00 Losartan Potassium (Cozaar) 100 mg DAILY PO Last administered on 05/09/17 09: 33; Admin Dose 100 MG; Start 05/08/17 at 09:00 Sertraline HCl (Zoloft) 25 mg DAILY PO Last administered on 05/09/17 09:33; Admin Dose 25 MG; Start 05/08/17 at 09:00 Patient Own Medication 3 ea TID PO Last administered on 05/09/17 09:33; Admin Dose 3 EA; Start 05/08/17 at 13:00 Prednisone (Prednisone) 40 mg DAILY PO Last administered on 05/09/17 09:33; Admin Dose 40 MG; Start 05/09/17 at 09:00 Levofloxacin (Levaquin) 750 mg DAILY@06 PO Last administered on 05/09/17 06:23 ; Admin Dose 750 MG; Start 05/09/17 at 06:00 EDNA DELUCA MD May 09, 2017 13:52
--- NOTE | 2017-05-09 19:16 | RADRPT ---
PROCEDURE: Thyroid ultrasound. CLINICAL INDICATION: . TECHNIQUE: Real time burk scale ultrasound imaging of the thyroid gland were performed with color flow Doppler analysis. COMPARISON: None. FINDINGS: The thyroid gland is mildly heterogeneous in echotexture . The right thyroid lobe measures 2.9 x 1.1 x 1.1 cm in size. Left thyroid lobe measures 3.6 x 0.9 x 1 cm in size. The isthmus measures 4 mm in thickness. IMPRESSION: 1. Essentially normal thyroid ultrasound. No thyroid nodule. RPTAT:AAJJ Physician Ciaran Date Time Electronically viewed and signed by Physician Ciaran on 05/09/2017 19:16 DERECK/
[2017-05-10] VITALS (17 sets, daily range): BP systolic 98–150; BP diastolic 53–89; PULSE 75–98; RESP 18–24
[2017-05-10] MEDS: ALBUTEROL/IPRATROPIUM (NEB) 3 ML AMP HHN SCH ×6 (01:47→20:53)
[2017-05-10] MEDS: LEVOFLOXACIN 750 MG TABLET PO SCH (06:00)
[2017-05-10] MEDS: ONDANSETRON 4 MG INJ IV PRN (06:18)
[2017-05-10] MEDS: LOSARTAN 50 MG TAB PO SCH (08:22)
[2017-05-10] MEDS: ISOSORBIDE DINITRATE 20 MG TAB PO SCH ×3 (08:23→20:48)
[2017-05-10] MEDS: predniSONE 20 MG TAB PO SCH (08:23)
[2017-05-10] MEDS: ASPIRIN (EC) 81 MG TAB PO SCH (08:23)
[2017-05-10] MEDS: SERTRALINE 50 MG TAB PO SCH (08:23)
[2017-05-10] MEDS: PIRFENIDONE 267 MG PO SCH ×3 (08:33→20:48)
--- NOTE | 2017-05-10 15:13 | PN ---
Date/Time of Note Date/Time of Note DATE: 05/10/17 TIME: 15:12 Assessment/Plan VTE Prophylaxis VTE Prophylaxis Intervention: SCD's Lines/Catheters IV Catheter Type (from Nrs): Saline Lock Urinary Cath still in place: No Assessment/Plan Assessment/Plan 67 yo F with IPF on chronic home oxygen therapy presents with 4 days of increased SOB and acute on chronic hypoxia. PLAN -pulm on consult for help with IPF management -cont empiric abx, cont steroid burst -add mucinex TSH nl, check thyroid US #dysuria: urine culture negative cont home meds Subjective 24 Hr Interval Summary Free Text/Dictation States she is coughing up a lot of phlegm Exam/Review of Systems Vital Signs Vitals Vital Signs Date Time Temp Pulse Resp B/P Pulse Ox O2 Delivery O2 Flow Rate FiO2 05/10/17 13:06 96 Nasal Cannula 6.0 05/10/17 12:04 96 05/10/17 11:43 98.0 18 98/53 05/10/17 06:10 60 Intake and Output 05/09/17 05/09/17 05/10/17 15:00 23:00 07:00 Intake Total 800 ml Output Total 1500 ml Balance -700 ml Exam nad wearing nc +fine crackles no mrg abd soft no rashes Results Result Diagram: 05/09/1740 05/09/17 0640 Medications Medications Current Medications Ondansetron HCl (Zofran Inj) 4 mg Q6H PRN IV NAUSEA AND/OR VOMITING Last administered on 05/10/17 06:18; Admin Dose 4 MG; Start 05/08/17 at 05:00 Acetaminophen (Tylenol Tab) 650 mg Q6H PRN PO PAIN LEVEL 1-3 OR FEVER; Start at 05:00 Alprazolam (Xanax) 0.25 mg Q8H PRN PO ANXIETY; Start 05/08/17 at 05:30 Aspirin (Halfprin) 81 mg DAILY PO Last administered on 05/10/17 08:23; Admin Dose 81 MG; Start 05/08/17 at 09:00 Furosemide (Lasix) 20 mg DAILY@06 PO ; Start 05/08/17 at 06:00; Status Future Hold Isosorbide Dinitrate (Isordil) 20 mg TID PO Last administered on 05/10/17 08:23 ; Admin Dose 20 MG; Start 05/08/17 at 09:00 Losartan Potassium (Cozaar) 100 mg DAILY PO Last administered on 05/10/17 08:22 ; Admin Dose 100 MG; Start 05/08/17 at 09:00 Sertraline HCl (Zoloft) 25 mg DAILY PO Last administered on 05/10/17 08:23; Admin Dose 25 MG; Start 05/08/17 at 09:00 Patient Own Medication 3 ea TID PO Last administered on 05/10/17 13:59; Admin Dose 3 EA; Start 05/08/17 at 13:00 Prednisone (Prednisone) 40 mg DAILY PO Last administered on 05/10/17 08:23; Admin Dose 40 MG; Start 05/09/17 at 09:00 Levofloxacin (Levaquin) 750 mg Q48H PO ; Start 05/10/17 at 06:00 EDNA DELUCA MD May 10, 2017 15:13
--- NOTE | 2017-05-10 16:50 | CONS ---
Date/Time of Note Date/Time of Note DATE: 05/10/17 TIME: 16:48 Consult Date/Type/Reason Admit Date/Time May 08, 2017 at 03:10 Initial Consult Date 05/08/17 Type of Consultation: Pulmonary Subjective No events. Off BiPAP Objective Vital Signs Date Time Temp Pulse Resp B/P Pulse Ox O2 Delivery O2 Flow Rate FiO2 05/10/17 16:34 73 24 95 Nasal Cannula 6.0 05/10/17 11:43 98.0 98/53 05/10/17 06:10 60 Intake and Output 05/09/17 05/09/17 05/10/17 15:00 23:00 07:00 Intake Total 800 ml Output Total 1500 ml Balance -700 ml Exam HEENT: Neck supple; no JVD; no LAD CVS: RRR, S1 and S2 CHEST: Fine velcro-like inspiratory rales b/l ABD: Soft, NT, + BS EXT: No c/c/e Results/Medications Result Diagram: 05/09/1740 05/09/1740 Medications Current Medications Ondansetron HCl (Zofran Inj) 4 mg Q6H PRN IV NAUSEA AND/OR VOMITING Last administered on 05/10/17 06:18; Admin Dose 4 MG; Start 05/08/17 at 05:00 Acetaminophen (Tylenol Tab) 650 mg Q6H PRN PO PAIN LEVEL 1-3 OR FEVER; Start at 05:00 Alprazolam (Xanax) 0.25 mg Q8H PRN PO ANXIETY; Start 05/08/17 at 05:30 Aspirin (Halfprin) 81 mg DAILY PO Last administered on 05/10/17 08:23; Admin Dose 81 MG; Start 05/08/17 at 09:00 Furosemide (Lasix) 20 mg DAILY@06 PO ; Start 05/08/17 at 06:00; Status Future Hold Isosorbide Dinitrate (Isordil) 20 mg TID PO Last administered on 05/10/17 08:23 ; Admin Dose 20 MG; Start 05/08/17 at 09:00 Losartan Potassium (Cozaar) 100 mg DAILY PO Last administered on 05/10/17 08:22 ; Admin Dose 100 MG; Start 05/08/17 at 09:00 Sertraline HCl (Zoloft) 25 mg DAILY PO Last administered on 05/10/17 08:23; Admin Dose 25 MG; Start 05/08/17 at 09:00 Patient Own Medication 3 ea TID PO Last administered on 05/10/17 13:59; Admin Dose 3 EA; Start 05/08/17 at 13:00 Prednisone (Prednisone) 40 mg DAILY PO Last administered on 05/10/17 08:23; Admin Dose 40 MG; Start 05/09/17 at 09:00 Levofloxacin (Levaquin) 750 mg Q48H PO ; Start 05/10/17 at 06:00 Guaifenesin (Mucinex) 600 mg BID PO ; Start 05/10/17 at 21:00 Assessment/Plan Additional Assessment/Plan IMP: 1. AE-IPF 2. Chronic CO2 retention due to restrictive lung disease RECS: 1. Continue steroids (I usually pulse with solumedrol 500 mg daily x 3 days in AEIPF) 2. Keep I <O's 3. Titrate FiO2 to keep SpO2 88-92% VERONICA LOUISE MD May 10, 2017 16:50
[2017-05-10] MEDS: GUAIFENESIN LA 600 MG TABSR PO SCH (20:48)
[2017-05-11] VITALS (15 sets, daily range): BP systolic 98–160; BP diastolic 56–80; PULSE 76–142; RESP 12–18
[2017-05-11] MEDS: ALBUTEROL/IPRATROPIUM (NEB) 3 ML AMP HHN SCH ×6 (00:51→21:34)
[2017-05-11] MEDS: PIRFENIDONE 267 MG PO SCH ×3 (08:24→20:18)
[2017-05-11] MEDS: LOSARTAN 50 MG TAB PO SCH (08:25)
[2017-05-11] MEDS: predniSONE 20 MG TAB PO SCH (08:25)
[2017-05-11] MEDS: ISOSORBIDE DINITRATE 20 MG TAB PO SCH ×3 (08:25→21:00)
[2017-05-11] MEDS: GUAIFENESIN LA 600 MG TABSR PO SCH ×2 (08:26→20:17)
[2017-05-11] MEDS: SERTRALINE 50 MG TAB PO SCH (08:26)
[2017-05-11] MEDS: ASPIRIN (EC) 81 MG TAB PO SCH (08:26)
[2017-05-11] MEDS: ONDANSETRON 4 MG INJ IV PRN ×2 (10:16→21:55)
[2017-05-11] MEDS: ALPRAZOLAM 0.25 MG TAB PO PRN (11:13)
[2017-05-11] MEDS: PANTOPRAZOLE (EC) 40 MG TAB PO SCH (12:46)
--- NOTE | 2017-05-11 12:54 | CONS ---
Date/Time of Note Date/Time of Note DATE: 05/11/17 TIME: 12:52 Consult Date/Type/Reason Admit Date/Time May 08, 2017 at 03:10 Initial Consult Date 05/08/17 Type of Consultation: Pulmonary Subjective Experience significant nausea and indigestion. Dyspnea unchanged. Objective Vital Signs Date Time Temp Pulse Resp B/P Pulse Ox O2 Delivery O2 Flow Rate FiO2 05/11/17 12:32 98.9 83 12 119/69 98 05/11/17 12:26 Nasal Cannula 6.0 05/11/17 03:30 40 Intake and Output 05/10/17 05/10/17 05/11/17 15:00 23:00 07:00 Intake Total 800 ml 250 ml Output Total 1300 ml Balance -500 ml 250 ml Exam HEENT: Neck supple; no JVD; no LAD CVS: RRR, S1 and S2 CHEST: Fine velcro-like inspiratory rales b/l ABD: Soft, NT, + BS EXT: No c/c/e Results/Medications Result Diagram: 05/09/17 0640 05/09/17 0640 Results 24 hrs Laboratory Tests Test 05/11/17 10:29 Lab Scanned Report REFERENCE LAB Medications Current Medications Ondansetron HCl (Zofran Inj) 4 mg Q6H PRN IV NAUSEA AND/OR VOMITING Last administered on 05/11/17 10:16; Admin Dose 4 MG; Start 05/08/17 at 05:00 Acetaminophen (Tylenol Tab) 650 mg Q6H PRN PO PAIN LEVEL 1-3 OR FEVER; Start at 05:00 Alprazolam (Xanax) 0.25 mg Q8H PRN PO ANXIETY Last administered on 05/11/17 11: 13; Admin Dose 0.25 MG; Start 05/08/17 at 05:30 Aspirin (Halfprin) 81 mg DAILY PO Last administered on 05/11/17 08:26; Admin Dose 81 MG; Start 05/08/17 at 09:00 Furosemide (Lasix) 20 mg DAILY@06 PO ; Start 05/08/17 at 06:00; Status Future Hold Isosorbide Dinitrate (Isordil) 20 mg TID PO Last administered on 05/11/17 12:47 ; Admin Dose 20 MG; Start 05/08/17 at 09:00 Losartan Potassium (Cozaar) 100 mg DAILY PO Last administered on 05/11/17 08:25 ; Admin Dose 100 MG; Start 05/08/17 at 09:00 Sertraline HCl (Zoloft) 25 mg DAILY PO Last administered on 05/11/17 08:26; Admin Dose 25 MG; Start 05/08/17 at 09:00 Patient Own Medication 3 ea TID PO Last administered on 05/11/17 12:48; Admin Dose 3 EA; Start 05/08/17 at 13:00 Prednisone (Prednisone) 40 mg DAILY PO Last administered on 05/11/17 08:25; Admin Dose 40 MG; Start 05/09/17 at 09:00 Levofloxacin (Levaquin) 750 mg Q48H PO ; Start 05/10/17 at 06:00 Guaifenesin (Mucinex) 600 mg BID PO Last administered on 05/11/17 08:26; Admin Dose 600 MG; Start 05/10/17 at 21:00 Pantoprazole (Protonix Tab) 40 mg DAILY@06 PO Last administered on 05/11/17 12: 46; Admin Dose 40 MG; Start 05/11/17 at 13:00 Assessment/Plan Additional Assessment/Plan IMP: 1. AE-IPF 2. Chronic CO2 retention due to restrictive lung disease 3. Nausea/vomiting--likely related to Esbriet RECS: 1. Continue steroids 2. Keep I <O's 3. Titrate FiO2 to keep SpO2 88-92% 4. Would hold Esbriet until dyspepsia resolves. Also, it should always be taken with meals. VERONICA LOUISE MD May 11, 2017 12:54
--- NOTE | 2017-05-11 14:26 | PN ---
Date/Time of Note Date/Time of Note DATE: 05/11/17 TIME: 14:26 Assessment/Plan VTE Prophylaxis VTE Prophylaxis Intervention: SCD's Lines/Catheters IV Catheter Type (from Nrs): Saline Lock Urinary Cath still in place: No Assessment/Plan Assessment/Plan 67 yo F with IPF on chronic home oxygen therapy presents with 4 days of increased SOB and acute on chronic hypoxia. PLAN -pulm on consult for help with IPF management note reviewed re IPF meds as possible cause of nausea -cont empiric abx, cont steroid burst, mucinex TSH nl, check thyroid US #dysuria: urine culture negative cont home meds-->resume PPI possibly home in AM if nausea improves? Subjective 24 Hr Interval Summary Free Text/Dictation Pt with some vomiting this AM. No worsening of respiratory status Exam/Review of Systems Vital Signs Vitals Vital Signs Date Time Temp Pulse Resp B/P Pulse Ox O2 Delivery O2 Flow Rate FiO2 05/11/17 12:32 98.9 83 12 119/69 98 05/11/17 12:26 Nasal Cannula 6.0 05/11/17 03:30 40 Intake and Output 05/10/17 05/10/17 05/11/17 15:00 23:00 07:00 Intake Total 800 ml 250 ml Output Total 1300 ml Balance -500 ml 250 ml Exam nad sitting up in bed, holding emesis bag no mrg fine crackles abd soft no rashes Results Result Diagram: 05/09/17 0640 05/09/17 0640 Results 24 hrs Laboratory Tests Test 05/11/17 10:29 Lab Scanned Report REFERENCE LAB Medications Medications Current Medications Ondansetron HCl (Zofran Inj) 4 mg Q6H PRN IV NAUSEA AND/OR VOMITING Last administered on 05/11/17 10:16; Admin Dose 4 MG; Start 05/08/17 at 05:00 Acetaminophen (Tylenol Tab) 650 mg Q6H PRN PO PAIN LEVEL 1-3 OR FEVER; Start at 05:00 Alprazolam (Xanax) 0.25 mg Q8H PRN PO ANXIETY Last administered on 05/11/17 11: 13; Admin Dose 0.25 MG; Start 05/08/17 at 05:30 Aspirin (Halfprin) 81 mg DAILY PO Last administered on 05/11/17 08:26; Admin Dose 81 MG; Start 05/08/17 at 09:00 Furosemide (Lasix) 20 mg DAILY@06 PO ; Start 05/08/17 at 06:00; Status Future Hold Isosorbide Dinitrate (Isordil) 20 mg TID PO Last administered on 05/11/17 12:47 ; Admin Dose 20 MG; Start 05/08/17 at 09:00 Losartan Potassium (Cozaar) 100 mg DAILY PO Last administered on 05/11/17 08:25 ; Admin Dose 100 MG; Start 05/08/17 at 09:00 Sertraline HCl (Zoloft) 25 mg DAILY PO Last administered on 05/11/17 08:26; Admin Dose 25 MG; Start 05/08/17 at 09:00 Patient Own Medication 3 ea TID PO Last administered on 05/11/17 12:48; Admin Dose 3 EA; Start 05/08/17 at 13:00 Prednisone (Prednisone) 40 mg DAILY PO Last administered on 05/11/17 08:25; Admin Dose 40 MG; Start 05/09/17 at 09:00 Levofloxacin (Levaquin) 750 mg Q48H PO ; Start 05/10/17 at 06:00 Guaifenesin (Mucinex) 600 mg BID PO Last administered on 05/11/17 08:26; Admin Dose 600 MG; Start 05/10/17 at 21:00 Pantoprazole (Protonix Tab) 40 mg DAILY@06 PO Last administered on 05/11/17 12: 46; Admin Dose 40 MG; Start 05/11/17 at 13:00 Procedures Procedures RVP negative EDNA DELUCA MD May 11, 2017 14:26
[2017-05-11] MEDS ORDERED: METOCLOPRAMIDE 10 MG INJ IV PRN (23:00)
[2017-05-11] MEDS ORDERED: AL HYDROX/MG HYDROX/SIMETH 30 ML CUP PO PRN (23:00)
[2017-05-11] MEDS: METOCLOPRAMIDE 10 MG INJ IV PRN (23:11)
[2017-05-11] MEDS ORDERED: NA PHOSPHATE/BIPHOS 133 ML ENEMA PR ONE (23:45)
[2017-05-12] VITALS (18 sets, daily range): BP systolic 120–167; BP diastolic 66–91; PULSE 84–108; RESP 18–30
[2017-05-12] MEDS ORDERED: NA PHOSPHATE/BIPHOS 133 ML ENEMA PR ONE
[2017-05-12] MEDS: ALBUTEROL/IPRATROPIUM (NEB) 3 ML AMP HHN SCH ×6 (01:12→20:25)
[2017-05-12] MEDS: ALPRAZOLAM 0.25 MG TAB PO PRN (01:58)
[2017-05-12] MEDS: PANTOPRAZOLE (EC) 40 MG TAB PO SCH (06:07)
[2017-05-12] MEDS: LEVOFLOXACIN 750 MG TABLET PO SCH (06:07)
[2017-05-12] MEDS: GUAIFENESIN LA 600 MG TABSR PO SCH ×2 (09:10→20:37)
[2017-05-12] MEDS: PIRFENIDONE 267 MG PO SCH ×3 (09:10→20:37)
[2017-05-12] MEDS: POLYETHYLENE GLYCOL 17 GM PACKET PO SCH (09:10)
[2017-05-12] MEDS: ASPIRIN (EC) 81 MG TAB PO SCH (09:10)
[2017-05-12] MEDS: LOSARTAN 50 MG TAB PO SCH (09:10)
[2017-05-12] MEDS: ISOSORBIDE DINITRATE 20 MG TAB PO SCH ×3 (09:10→20:37)
[2017-05-12] MEDS: predniSONE 20 MG TAB PO SCH (09:10)
[2017-05-12] MEDS: SERTRALINE 50 MG TAB PO SCH (09:11)
[2017-05-12] MEDS: METOCLOPRAMIDE 10 MG INJ IV PRN (09:19)
--- NOTE | 2017-05-12 12:42 | CONS ---
Date/Time of Note Date/Time of Note DATE: 05/12/17 TIME: 12:41 Consult Date/Type/Reason Admit Date/Time May 08, 2017 at 03:10 Initial Consult Date 05/08/17 Type of Consultation: Pulmonary Subjective Still with shortness of breath and abdominal discomfort Objective Vital Signs Date Time Temp Pulse Resp B/P Pulse Ox O2 Delivery O2 Flow Rate FiO2 05/12/17 12:00 84 05/12/17 11:38 97.9 28 136/78 98 05/12/17 08:10 Nasal Cannula 6.0 05/12/17 02:12 40 Intake and Output 05/11/17 05/11/17 05/12/17 14:59 22:59 06:59 Intake Total 700 ml 500 ml Output Total 1200 ml 300 ml Balance -500 ml 200 ml Exam GENERAL: Chronically ill-appearing lady comfortable at rest VITAL SIGNS: per chart NECK: Supple. No JVD or lymphadenopathy. CARDIAC EXAM: S1, S2. No added sounds or murmurs. CHEST: diminished air entry bilaterally with bibasilar rales ABDOMEN: Soft, nontender. No guarding or rebound. EXTREMITIES: No cyanosis, clubbing or edema. NEUROLOGIC: Generalized weakness. No focal deficits. Results/Medications Result Diagram: 05/09/1740 05/09/17 0640 Medications Current Medications Ondansetron HCl (Zofran Inj) 4 mg Q6H PRN IV NAUSEA AND/OR VOMITING Last administered on 05/11/17 21:55; Admin Dose 4 MG; Start 05/08/17 at 05:00 Acetaminophen (Tylenol Tab) 650 mg Q6H PRN PO PAIN LEVEL 1-3 OR FEVER; Start at 05:00 Alprazolam (Xanax) 0.25 mg Q8H PRN PO ANXIETY Last administered on 05/12/17 01: 58; Admin Dose 0.25 MG; Start 05/08/17 at 05:30 Aspirin (Halfprin) 81 mg DAILY PO Last administered on 05/12/17 09:10; Admin Dose 81 MG; Start 05/08/17 at 09:00 Furosemide (Lasix) 20 mg DAILY@06 PO ; Start 05/08/17 at 06:00; Status Future Hold Isosorbide Dinitrate (Isordil) 20 mg TID PO Last administered on 05/12/17 09:10 ; Admin Dose 20 MG; Start 05/08/17 at 09:00 Losartan Potassium (Cozaar) 100 mg DAILY PO Last administered on 05/12/17 09:10 ; Admin Dose 100 MG; Start 05/08/17 at 09:00 Sertraline HCl (Zoloft) 25 mg DAILY PO Last administered on 05/12/17 09:11; Admin Dose 25 MG; Start 05/08/17 at 09:00 Patient Own Medication 3 ea TID PO Last administered on 05/12/17 09:10; Admin Dose 3 EA; Start 05/08/17 at 13:00 Prednisone (Prednisone) 40 mg DAILY PO Last administered on 05/12/17 09:10; Admin Dose 40 MG; Start 05/09/17 at 09:00 Levofloxacin (Levaquin) 750 mg Q48H PO Last administered on 05/12/17 06:07; Admin Dose 750 MG; Start 05/10/17 at 06:00 Guaifenesin (Mucinex) 600 mg BID PO Last administered on 05/12/17 09:10; Admin Dose 600 MG; Start 05/10/17 at 21:00 Pantoprazole (Protonix Tab) 40 mg DAILY@06 PO Last administered on 05/12/17 06: 07; Admin Dose 40 MG; Start 05/11/17 at 13:00 Al Hydrox/Mg Hydrox/Simethicone (Mag-Al Plus) 30 ml Q6H PRN PO GASTROINTESTINAL UPSET Last administered on 05/11/17 23:11; Admin Dose 30 ML; Start 05/11/17 at 23:00 Metoclopramide HCl (Reglan) 10 mg Q6H PRN IV VOMITTING Last administered on 05/12 09:19; Admin Dose 10 MG; Start 05/11/17 at 23:00 Polyethylene Glycol (Miralax) 17 gm DAILY PO Last administered on 05/12/17 09: 10; Admin Dose 17 GM; Start 05/12/17 at 09:00 Assessment/Plan Chief Complaint/Hosp Course Additional Assessment/Plan IMP: 1. AE-IPF 2. Chronic CO2 retention due to restrictive lung disease 3. Nausea/vomiting--likely related to Esbriet RECS: 1. Continue steroids 2. Keep I <O's 3. Titrate FiO2 to keep SpO2 88-92% 4. Hold Esbriet 5. [facility] eval. Problems: NAYLA BENSON MD, [facility] May 12, 2017 12:42
--- NOTE | 2017-05-12 13:51 | PN ---
Date/Time of Note Date/Time of Note DATE: 05/12/17 TIME: 13:50 Assessment/Plan VTE Prophylaxis VTE Prophylaxis Intervention: SCD's Lines/Catheters IV Catheter Type (from Nrs): Saline Lock Urinary Cath still in place: No Assessment/Plan Assessment/Plan 67 yo F with IPF on chronic home oxygen therapy presents with 4 days of increased SOB and acute on chronic respiratory failure PLAN -pulm on consult for help with IPF management -cont empiric abx, cont steroid burst, mucinex TSH nl, check thyroid US #dysuria: urine culture negative cont home meds-->resume PPI possibly discharge to [facility] as per pulm Subjective 24 Hr Interval Summary Free Text/Dictation Respiratory status not yet back to baseline. +dry heaves overnight Exam/Review of Systems Vital Signs Vitals Vital Signs Date Time Temp Pulse Resp B/P Pulse Ox O2 Delivery O2 Flow Rate FiO2 05/12/17 12:00 84 05/12/17 11:38 97.9 28 136/78 98 05/12/17 08:10 Nasal Cannula 6.0 05/12/17 02:12 40 Intake and Output 05/11/17 05/11/17 05/12/17 14:59 22:59 06:59 Intake Total 700 ml 500 ml Output Total 1200 ml 300 ml Balance -500 ml 200 ml Exam sitting up in bed trying to eat breakfast no mrg abd soft no rashes no le edema Results Result Diagram: 05/09/17 0640 05/09/17 0640 Medications Medications Current Medications Ondansetron HCl (Zofran Inj) 4 mg Q6H PRN IV NAUSEA AND/OR VOMITING Last administered on 05/11/17 21:55; Admin Dose 4 MG; Start 05/08/17 at 05:00 Acetaminophen (Tylenol Tab) 650 mg Q6H PRN PO PAIN LEVEL 1-3 OR FEVER; Start at 05:00 Alprazolam (Xanax) 0.25 mg Q8H PRN PO ANXIETY Last administered on 05/12/17 01: 58; Admin Dose 0.25 MG; Start 05/08/17 at 05:30 Aspirin (Halfprin) 81 mg DAILY PO Last administered on 05/12/17 09:10; Admin Dose 81 MG; Start 05/08/17 at 09:00 Furosemide (Lasix) 20 mg DAILY@06 PO ; Start 05/08/17 at 06:00; Status Future Hold Isosorbide Dinitrate (Isordil) 20 mg TID PO Last administered on 05/12/17 13:34 ; Admin Dose 20 MG; Start 05/08/17 at 09:00 Losartan Potassium (Cozaar) 100 mg DAILY PO Last administered on 05/12/17 09:10 ; Admin Dose 100 MG; Start 05/08/17 at 09:00 Sertraline HCl (Zoloft) 25 mg DAILY PO Last administered on 05/12/17 09:11; Admin Dose 25 MG; Start 05/08/17 at 09:00 Patient Own Medication 3 ea TID PO Last administered on 05/12/17 13:34; Admin Dose 3 EA; Start 05/08/17 at 13:00 Prednisone (Prednisone) 40 mg DAILY PO Last administered on 05/12/17 09:10; Admin Dose 40 MG; Start 05/09/17 at 09:00 Levofloxacin (Levaquin) 750 mg Q48H PO Last administered on 05/12/17 06:07; Admin Dose 750 MG; Start 05/10/17 at 06:00 Guaifenesin (Mucinex) 600 mg BID PO Last administered on 05/12/17 09:10; Admin Dose 600 MG; Start 05/10/17 at 21:00 Pantoprazole (Protonix Tab) 40 mg DAILY@06 PO Last administered on 05/12/17 06: 07; Admin Dose 40 MG; Start 05/11/17 at 13:00 Al Hydrox/Mg Hydrox/Simethicone (Mag-Al Plus) 30 ml Q6H PRN PO GASTROINTESTINAL UPSET Last administered on 05/11/17 23:11; Admin Dose 30 ML; Start 05/11/17 at 23:00 Metoclopramide HCl (Reglan) 10 mg Q6H PRN IV VOMITTING Last administered on 05/12 09:19; Admin Dose 10 MG; Start 05/11/17 at 23:00 Polyethylene Glycol (Miralax) 17 gm DAILY PO Last administered on 05/12/17 09: 10; Admin Dose 17 GM; Start 05/12/17 at 09:00 EDNA DELUCA MD May 12, 2017 13:50
[2017-05-13] VITALS (18 sets, daily range): BP systolic 116–126; BP diastolic 5–75; PULSE 78–115; RESP 18–35
[2017-05-13] MEDS: ALBUTEROL/IPRATROPIUM (NEB) 3 ML AMP HHN SCH ×6 (01:41→20:01)
[2017-05-13] MEDS: LOSARTAN 50 MG TAB PO SCH (08:41)
[2017-05-13] MEDS: PANTOPRAZOLE (EC) 40 MG TAB PO SCH (08:41)
[2017-05-13] MEDS: GUAIFENESIN LA 600 MG TABSR PO SCH ×2 (08:41→21:30)
[2017-05-13] MEDS: ASPIRIN (EC) 81 MG TAB PO SCH (08:41)
[2017-05-13] MEDS: POLYETHYLENE GLYCOL 17 GM PACKET PO SCH (08:41)
[2017-05-13] MEDS: SERTRALINE 50 MG TAB PO SCH (08:41)
[2017-05-13] MEDS: ISOSORBIDE DINITRATE 20 MG TAB PO SCH ×3 (08:41→21:30)
[2017-05-13] MEDS: PIRFENIDONE 267 MG PO SCH (08:41)
[2017-05-13] MEDS: predniSONE 20 MG TAB PO SCH (08:41)
[2017-05-13] MEDS: ONDANSETRON 4 MG INJ IV PRN (08:48)
--- NOTE | 2017-05-13 10:40 | PN ---
Date/Time of Note Date/Time of Note DATE: 05/13/17 TIME: 10:37 Assessment/Plan VTE Prophylaxis VTE Prophylaxis Intervention: SCD's Lines/Catheters IV Catheter Type (from [facility]): Saline Lock Urinary Cath still in place: No Assessment/Plan Chief Complaint/Hosp Course 1. Acute on chronic hypercapnic and hypoxic respiratory failure secondary to exacerbation of idiopathic pulmonary fibrosis. Continue supplemental oxygen. Continue inhaled bronchodilators. Continue tapering dose of steroids. 2. Pulmonary fibrosis. Continue supplemental oxygen. Management as per pulmonary. Continue Pirfenidone. 3. Essential hypertension. Continue anti-hypertensives. Blood pressure well controlled. 4. Depression. Continue SSRIs. 5. Fluids, electrolytes, and nutrition. Low-cholesterol diet. 6. DVT prophylaxis. Bilateral sequential compression devices. 7. Gastrointestinal prophylaxis. Proton pump inhibitors. 8. Plan. Continue supplemental oxygen. Continue inhaled bronchodilators. Steroid taper as per pulmonary. Plan is to transfer the patient to [facility] once more stable. Case discussed with Dr. Morton. Problems: Subjective 24 Hr Interval Summary Free Text/Dictation Complains of frequent cough with sputum production. Complains of chest pain. Exam/Review of Systems Vital Signs Vitals Vital Signs Date Time Temp Pulse Resp B/P Pulse Ox O2 Delivery O2 Flow Rate FiO2 05/13/17 09:03 83 24 95 Nasal Cannula 6.0 05/13/17 07:49 98.4 120/75 05/13/17 05:14 40 Intake and Output 05/12/17 05/12/17 05/13/17 15:00 23:00 07:00 Intake Total 720 ml 300 ml Balance 720 ml 300 ml Exam General: Adequately build 67 year-old female lying in bed in no apparent distress. HEENT: Normocephalic, atraumatic. Eyes: Anicteric sclerae, conjunctivae clear. ENT: Nasal septum midline, oral mucosa moist. Neck supple, no JVD noticed. Respiratory: Bilaterally diminished breath sounds. Use of accessory muscles of respiration. Bilateral fine rales. Cardiovascular: S1, S2 heard. No murmurs or gallops. Abdomen: Soft, nontender, and nondistended. Bowel sounds positive in all 4 quadrants. Genitourinary: Deferred. Extremities: No cyanosis, no edema. Clubbing of fingers of bilateral hands. Peripheral pulses palpable. Neurologic: Cranial nerves II through XII grossly intact. The patient is awake, alert, and oriented. Skin: Normal skin turgor. No skin rashes. Results Result Diagram: 05/09/17 0640 05/09/17 0640 Results 24 hrs Laboratory Tests Test 05/13/17 08:24 Lab Scanned Report REFERENCE LAB Medications Medications Current Medications Ondansetron HCl (Zofran Inj) 4 mg Q6H PRN IV NAUSEA AND/OR VOMITING Last administered on 05/13/17 08:48; Admin Dose 4 MG; Start 05/08/17 at 05:00 Acetaminophen (Tylenol Tab) 650 mg Q6H PRN PO PAIN LEVEL 1-3 OR FEVER; Start at 05:00 Alprazolam (Xanax) 0.25 mg Q8H PRN PO ANXIETY Last administered on 05/12/17 01: 58; Admin Dose 0.25 MG; Start 05/08/17 at 05:30 Aspirin (Halfprin) 81 mg DAILY PO Last administered on 05/13/17 08:41; Admin Dose 81 MG; Start 05/08/17 at 09:00 Furosemide (Lasix) 20 mg DAILY@06 PO ; Start 05/08/17 at 06:00; Status Future Hold Isosorbide Dinitrate (Isordil) 20 mg TID PO Last administered on 05/13/17 08:41 ; Admin Dose 20 MG; Start 05/08/17 at 09:00 Losartan Potassium (Cozaar) 100 mg DAILY PO Last administered on 05/13/17 08:41 ; Admin Dose 100 MG; Start 05/08/17 at 09:00 Sertraline HCl (Zoloft) 25 mg DAILY PO Last administered on 05/13/17 08:41; Admin Dose 25 MG; Start 05/08/17 at 09:00 Patient Own Medication 3 ea TID PO Last administered on 05/13/17 08:41; Admin Dose 3 EA; Start 05/08/17 at 13:00 Prednisone (Prednisone) 40 mg DAILY PO Last administered on 05/13/17 08:41; Admin Dose 40 MG; Start 05/09/17 at 09:00 Levofloxacin (Levaquin) 750 mg Q48H PO Last administered on 05/12/17 06:07; Admin Dose 750 MG; Start 05/10/17 at 06:00 Guaifenesin (Mucinex) 600 mg BID PO Last administered on 05/13/17 08:41; Admin Dose 600 MG; Start 05/10/17 at 21:00 Pantoprazole (Protonix Tab) 40 mg DAILY@06 PO Last administered on 05/13/17 08: 41; Admin Dose 40 MG; Start 05/11/17 at 13:00 Al Hydrox/Mg Hydrox/Simethicone (Mag-Al Plus) 30 ml Q6H PRN PO GASTROINTESTINAL UPSET Last administered on 05/11/17 23:11; Admin Dose 30 ML; Start 05/11/17 at 23:00 Metoclopramide HCl (Reglan) 10 mg Q6H PRN IV VOMITTING Last administered on 05/12 09:19; Admin Dose 10 MG; Start 05/11/17 at 23:00 Polyethylene Glycol (Miralax) 17 gm DAILY PO Last administered on 05/13/17 08: 41; Admin Dose 17 GM; Start 05/12/17 at 09:00 RAFAEL CORNELIUS NP May 13, 2017 10:40
--- NOTE | 2017-05-13 13:29 | CONS ---
Date/Time of Note Date/Time of Note DATE: 05/13/17 TIME: 13:27 Consult Date/Type/Reason Admit Date/Time May 08, 2017 at 03:10 Initial Consult Date 05/08/17 Type of Consultation: Pulmonary Subjective Still having moderate respiratory distress requiring BiPAP most of the day. Objective Vital Signs Date Time Temp Pulse Resp B/P Pulse Ox O2 Delivery O2 Flow Rate FiO2 05/13/17 12:07 94 05/13/17 11:24 98.3 20 116/61 97 05/13/17 09:03 Nasal Cannula 6.0 05/13/17 05:14 40 Intake and Output 05/12/17 05/12/17 05/13/17 15:00 23:00 07:00 Intake Total 720 ml 300 ml Balance 720 ml 300 ml Exam GENERAL: Chronically ill-appearing lady comfortable at rest VITAL SIGNS: per chart NECK: Supple. No JVD or lymphadenopathy. CARDIAC EXAM: S1, S2. No added sounds or murmurs. CHEST: diminished air entry bilaterally with bibasilar rales ABDOMEN: Soft, nontender. No guarding or rebound. EXTREMITIES: No cyanosis, clubbing or edema. NEUROLOGIC: Generalized weakness. No focal deficits. Results/Medications Result Diagram: 05/09/17 0640 05/09/17 0640 Results 24 hrs Laboratory Tests Test 05/13/17 08:24 Lab Scanned Report REFERENCE LAB Medications Current Medications Ondansetron HCl (Zofran Inj) 4 mg Q6H PRN IV NAUSEA AND/OR VOMITING Last administered on 05/13/17 08:48; Admin Dose 4 MG; Start 05/08/17 at 05:00 Acetaminophen (Tylenol Tab) 650 mg Q6H PRN PO PAIN LEVEL 1-3 OR FEVER; Start at 05:00 Alprazolam (Xanax) 0.25 mg Q8H PRN PO ANXIETY Last administered on 05/12/17 01: 58; Admin Dose 0.25 MG; Start 05/08/17 at 05:30 Aspirin (Halfprin) 81 mg DAILY PO Last administered on 05/13/17 08:41; Admin Dose 81 MG; Start 05/08/17 at 09:00 Furosemide (Lasix) 20 mg DAILY@06 PO ; Start 05/08/17 at 06:00; Status Future Hold Isosorbide Dinitrate (Isordil) 20 mg TID PO Last administered on 05/13/17 08:41 ; Admin Dose 20 MG; Start 05/08/17 at 09:00 Losartan Potassium (Cozaar) 100 mg DAILY PO Last administered on 05/13/17 08:41 ; Admin Dose 100 MG; Start 05/08/17 at 09:00 Sertraline HCl (Zoloft) 25 mg DAILY PO Last administered on 05/13/17 08:41; Admin Dose 25 MG; Start 05/08/17 at 09:00 Patient Own Medication 3 ea TID PO Last administered on 05/13/17 08:41; Admin Dose 3 EA; Start 05/08/17 at 13:00 Prednisone (Prednisone) 40 mg DAILY PO Last administered on 05/13/17 08:41; Admin Dose 40 MG; Start 05/09/17 at 09:00 Levofloxacin (Levaquin) 750 mg Q48H PO Last administered on 05/12/17 06:07; Admin Dose 750 MG; Start 05/10/17 at 06:00 Guaifenesin (Mucinex) 600 mg BID PO Last administered on 05/13/17 08:41; Admin Dose 600 MG; Start 05/10/17 at 21:00 Pantoprazole (Protonix Tab) 40 mg DAILY@06 PO Last administered on 05/13/17 08: 41; Admin Dose 40 MG; Start 05/11/17 at 13:00 Al Hydrox/Mg Hydrox/Simethicone (Mag-Al Plus) 30 ml Q6H PRN PO GASTROINTESTINAL UPSET Last administered on 05/11/17 23:11; Admin Dose 30 ML; Start 05/11/17 at 23:00 Metoclopramide HCl (Reglan) 10 mg Q6H PRN IV VOMITTING Last administered on 05/12 09:19; Admin Dose 10 MG; Start 05/11/17 at 23:00 Polyethylene Glycol (Miralax) 17 gm DAILY PO Last administered on 05/13/17 08: 41; Admin Dose 17 GM; Start 05/12/17 at 09:00 Assessment/Plan Chief Complaint/Hosp Course Additional Assessment/Plan IMP: 1. AE-IPF 2. Chronic CO2 retention due to restrictive lung disease 3. Nausea/vomiting--likely related to Esbriet RECS: 1. Continue steroids 2. Keep I <O's 3. Titrate FiO2 to keep SpO2 88-92% 4. Hold Esbriet 5. [facility]. Problems: NAYLA BENSON MD, [facility] May 13, 2017 13:29
[2017-05-14] VITALS (15 sets, daily range): BP systolic 86–134; BP diastolic 51–86; PULSE 76–114; RESP 18–28
[2017-05-14] MEDS: ALBUTEROL/IPRATROPIUM (NEB) 3 ML AMP HHN SCH ×6 (01:27→21:02)
[2017-05-14] MEDS: PANTOPRAZOLE (EC) 40 MG TAB PO SCH (05:22)
[2017-05-14] MEDS: LEVOFLOXACIN 750 MG TABLET PO SCH (05:22)
[2017-05-14 07:32] LABS: ADD SCAN DIFF NO
[2017-05-14 07:39] LABS: BASOPHILS % 0.1 % (0.0-2.0); EOSINOPHILS # 0.1 10^3/ul (0.0-0.5); EOSINOPHILS % 1.9 % (0.0-7.0); HEMATOCRIT 37.6 % (37.0-47.0); HEMOGLOBIN 11.5 g/dl (12.0-16.0); LYMPHOCYTES # 1.4 10^3/ul (0.8-2.9); LYMPHOCYTES % 18.9 % (15.0-51.0); MEAN CORPUSCULAR HEMOGLOBIN 29.9 pg (29.0-33.0); MEAN CORPUSCULAR HGB CONC 30.6 g/dl (32.0-37.0); MEAN CORPUSCULAR VOLUME 97.9 fl (82.0-101.0); MEAN PLATELET VOLUME 10.8 fl (7.4-10.4); MONOCYTE # 0.5 10^3/ul (0.3-0.9); MONOCYTES % 6.3 % (0.0-11.0); NEUTROPHIL # 5.3 10^3/ul (1.6-7.5); NEUTROPHILS % 72.4 % (39.0-77.0); PLATELET COUNT 153 10^3/UL (140-415); RED BLOOD COUNT 3.84 10^6/ul (4.20-5.40); RED CELL DISTRIBUTION WIDTH 14.6 % (11.5-14.5); WHITE BLOOD COUNT 7.4 10^3/ul (4.8-10.8)
[2017-05-14 07:57] LABS: CALCIUM 8.9 mg/dl (8.4-10.2); CREATININE 0.66 mg/dl (0.44-1.00); POTASSIUM 4.1 mmol/L (3.5-5.1)
[2017-05-14 08:24] LABS: CHOL/HDL RATIO 2.9 RATIO; MAGNESIUM 1.9 mg/dl (1.7-2.5); PHOSPHORUS 3.5 mg/dl (2.5-4.9)
--- NOTE | 2017-05-14 08:36 | RADRPT ---
PROCEDURE: XR Chest. CLINICAL INDICATION: Pneumonia, CHF TECHNIQUE: Single frontal chest x-ray. COMPARISON: 05/09/2017 FINDINGS: Increased interstitial markings are again seen bilaterally, grossly stable. No new infiltrate, pleu ral effusion or pneumothorax is identified. There is stable mild cardiomegaly. Aortic atherosclero tic calcification is noted. The osseous structures are unremarkable. IMPRESSION: 1. Grossly stable increased interstitial markings bilaterally, likely representing chronic scarring /fibrosis. 2. Stable mild cardiomegaly and aortic atherosclerosis. 3. No significant interval change. RPTAT: EE .Felton Lemos MD, MD Date Time Electronically viewed and signed by .Felton Lemos MD, on 05/14/2017 08:35 .R/
[2017-05-14] MEDS: ASPIRIN (EC) 81 MG TAB PO SCH (08:58)
[2017-05-14] MEDS: ISOSORBIDE DINITRATE 20 MG TAB PO SCH ×3 (08:58→20:42)
[2017-05-14] MEDS: predniSONE 20 MG TAB PO SCH (08:58)
[2017-05-14] MEDS: SERTRALINE 50 MG TAB PO SCH (08:58)
[2017-05-14] MEDS: POLYETHYLENE GLYCOL 17 GM PACKET PO SCH (08:59)
[2017-05-14] MEDS: LOSARTAN 50 MG TAB PO SCH (08:59)
[2017-05-14] MEDS: GUAIFENESIN LA 600 MG TABSR PO SCH ×2 (08:59→20:42)
[2017-05-14] MEDS: ALPRAZOLAM 0.25 MG TAB PO PRN ×2 (09:00→20:42)
--- NOTE | 2017-05-14 11:48 | PN ---
Date/Time of Note Date/Time of Note DATE: 05/14/17 TIME: 11:47 Assessment/Plan VTE Prophylaxis VTE Prophylaxis Intervention: SCD's Lines/Catheters IV Catheter Type (from [facility]): [facility] Urinary Cath still in place: No Assessment/Plan Chief Complaint/Hosp Course 1. Acute on chronic hypercapnic and hypoxic respiratory failure secondary to exacerbation of idiopathic pulmonary fibrosis. Continue supplemental oxygen. Continue inhaled bronchodilators. Continue tapering dose of steroids. 2. Pulmonary fibrosis. Continue supplemental oxygen. Management as per pulmonary. Pirfenidone on hold as per pulmonary. 3. Essential hypertension. Continue anti-hypertensives. Blood pressure well controlled. 4. Depression. Continue SSRIs. 5. Fluids, electrolytes, and nutrition. Low-cholesterol diet. 6. DVT prophylaxis. Bilateral sequential compression devices. 7. Gastrointestinal prophylaxis. Proton pump inhibitors. 8. Plan. Continue supplemental oxygen. Continue inhaled bronchodilators. Steroid taper as per pulmonary. Plan is to transfer the patient to [facility] once more stable. Case discussed with Dr. Morton. Problems: Subjective 24 Hr Interval Summary Free Text/Dictation Complains of dyspnea and productive cough. Exam/Review of Systems Vital Signs Vitals Vital Signs Date Time Temp Pulse Resp B/P Pulse Ox O2 Delivery O2 Flow Rate FiO2 05/14/17 11:38 97.6 102 20 86/51 92 05/14/17 09:15 6.0 05/14/17 09:15 Nasal Cannula 05/14/17 01:28 40 Intake and Output 05/13/17 05/13/17 05/14/17 15:00 23:00 07:00 Intake Total 960 ml 250 ml Balance 960 ml 250 ml Exam General: Adequately build 67 year-old female lying in bed in no apparent distress. HEENT: Normocephalic, atraumatic. Eyes: Anicteric sclerae, conjunctivae clear. ENT: Nasal septum midline, oral mucosa moist. Neck supple, no JVD noticed. Respiratory: Bilaterally diminished breath sounds. Use of accessory muscles of respiration. Bilateral fine rales. Cardiovascular: S1, S2 heard. No murmurs or gallops. Abdomen: Soft, nontender, and nondistended. Bowel sounds positive in all 4 quadrants. Genitourinary: Deferred. Extremities: No cyanosis, no edema. Clubbing of fingers of bilateral hands. Peripheral pulses palpable. Neurologic: Cranial nerves II through XII grossly intact. The patient is awake, alert, and oriented. Skin: Normal skin turgor. No skin rashes. Results Result Diagram: 05/14/17 0648 05/14/17 0645 Results 24 hrs Laboratory Tests Test 05/14/17 06:45 05/14/17 06:48 Sodium Level 140 Potassium Level 4.1 Chloride Level 92 L Carbon Dioxide Level 37 H Anion Gap 15 Blood Urea Nitrogen 15 Creatinine 0.66 Glucose Level 76 Calcium Level 8.9 White Blood Count 7.4 Red Blood Count 3.84 L Hemoglobin 11.5 L Hematocrit 37.6 Mean Corpuscular Volume 97.9 Mean Corpuscular Hemoglobin 29.9 Mean Corpuscular Hemoglobin Concent 30.6 L Red Cell Distribution Width 14.6 H Platelet Count 153 # Mean Platelet Volume 10.8 H Neutrophils % 72.4 Lymphocytes % 18.9 Monocytes % 6.3 Eosinophils % 1.9 Basophils % 0.1 Nucleated Red Blood Cells % 0.0 Neutrophils # 5.3 Lymphocytes # 1.4 Monocytes # 0.5 Eosinophils # 0.1 Basophils # 0.0 Nucleated Red Blood Cells # 0.0 Phosphorus Level 3.5 Magnesium Level 1.9 Triglycerides Level 102 Cholesterol Level 136 LDL Cholesterol, Calculated 70 HDL Cholesterol 46 Cholesterol/HDL Ratio 2.9 Medications Medications Current Medications Ondansetron HCl (Zofran Inj) 4 mg Q6H PRN IV NAUSEA AND/OR VOMITING Last administered on 05/13/17 08:48; Admin Dose 4 MG; Start 05/08/17 at 05:00 Acetaminophen (Tylenol Tab) 650 mg Q6H PRN PO PAIN LEVEL 1-3 OR FEVER; Start at 05:00 Alprazolam (Xanax) 0.25 mg Q8H PRN PO ANXIETY Last administered on 05/14/17 09: 00; Admin Dose 0.25 MG; Start 05/08/17 at 05:30 Aspirin (Halfprin) 81 mg DAILY PO Last administered on 05/14/17 08:58; Admin Dose 81 MG; Start 05/08/17 at 09:00 Furosemide (Lasix) 20 mg DAILY@06 PO ; Start 05/08/17 at 06:00; Status Future Hold Isosorbide Dinitrate (Isordil) 20 mg TID PO Last administered on 05/14/17 08:58 ; Admin Dose 20 MG; Start 05/08/17 at 09:00 Losartan Potassium (Cozaar) 100 mg DAILY PO Last administered on 05/14/17 08:59 ; Admin Dose 100 MG; Start 05/08/17 at 09:00 Sertraline HCl (Zoloft) 25 mg DAILY PO Last administered on 05/14/17 08:58; Admin Dose 25 MG; Start 05/08/17 at 09:00 Prednisone (Prednisone) 40 mg DAILY PO Last administered on 05/14/17 08:58; Admin Dose 40 MG; Start 05/09/17 at 09:00 Levofloxacin (Levaquin) 750 mg Q48H PO Last administered on 05/14/17 05:22; Admin Dose 750 MG; Start 05/10/17 at 06:00 Guaifenesin (Mucinex) 600 mg BID PO Last administered on 05/14/17 08:59; Admin Dose 600 MG; Start 05/10/17 at 21:00 Pantoprazole (Protonix Tab) 40 mg DAILY@06 PO Last administered on 05/14/17 05: 22; Admin Dose 40 MG; Start 05/11/17 at 13:00 Al Hydrox/Mg Hydrox/Simethicone (Mag-Al Plus) 30 ml Q6H PRN PO GASTROINTESTINAL UPSET Last administered on 05/11/17 23:11; Admin Dose 30 ML; Start 05/11/17 at 23:00 Metoclopramide HCl (Reglan) 10 mg Q6H PRN IV VOMITTING Last administered on 05/12 09:19; Admin Dose 10 MG; Start 05/11/17 at 23:00 Polyethylene Glycol (Miralax) 17 gm DAILY PO Last administered on 05/14/17 08: 59; Admin Dose 17 GM; Start 05/12/17 at 09:00 RAFAEL CORNELIUS NP May 14, 2017 11:48
--- NOTE | 2017-05-14 14:56 | CONS ---
Date/Time of Note Date/Time of Note DATE: 05/14/17 TIME: 14:54 Consult Date/Type/Reason Admit Date/Time May 08, 2017 at 03:10 Initial Consult Date 05/08/17 Type of Consultation: Pulmonary Subjective Patient is comfortable this morning still requiring BiPAP intermittently with marked desaturation on minimal exertion. Objective Vital Signs Date Time Temp Pulse Resp B/P Pulse Ox O2 Delivery O2 Flow Rate FiO2 05/14/17 13:45 91 4.0 05/14/17 13:45 105 30 Nasal Cannula 05/14/17 11:38 97.6 86/51 05/14/17 01:28 40 Intake and Output 05/13/17 05/13/17 05/14/17 15:00 23:00 07:00 Intake Total 960 ml 250 ml Balance 960 ml 250 ml Exam GENERAL: Chronically ill-appearing lady comfortable at rest VITAL SIGNS: per chart NECK: Supple. No JVD or lymphadenopathy. CARDIAC EXAM: S1, S2. No added sounds or murmurs. CHEST: diminished air entry bilaterally with bibasilar rales ABDOMEN: Soft, nontender. No guarding or rebound. EXTREMITIES: No cyanosis, clubbing or edema. NEUROLOGIC: Generalized weakness. No focal deficits. Results/Medications Result Diagram: 05/14/17 0648 05/14/17 0645 Results 24 hrs Laboratory Tests Test 05/14/17 06:45 05/14/17 06:48 Sodium Level 140 Potassium Level 4.1 Chloride Level 92 L Carbon Dioxide Level 37 H Anion Gap 15 Blood Urea Nitrogen 15 Creatinine 0.66 Glucose Level 76 Calcium Level 8.9 White Blood Count 7.4 Red Blood Count 3.84 L Hemoglobin 11.5 L Hematocrit 37.6 Mean Corpuscular Volume 97.9 Mean Corpuscular Hemoglobin 29.9 Mean Corpuscular Hemoglobin Concent 30.6 L Red Cell Distribution Width 14.6 H Platelet Count 153 # Mean Platelet Volume 10.8 H Neutrophils % 72.4 Lymphocytes % 18.9 Monocytes % 6.3 Eosinophils % 1.9 Basophils % 0.1 Nucleated Red Blood Cells % 0.0 Neutrophils # 5.3 Lymphocytes # 1.4 Monocytes # 0.5 Eosinophils # 0.1 Basophils # 0.0 Nucleated Red Blood Cells # 0.0 Hemoglobin A1c 5.9 Phosphorus Level 3.5 Magnesium Level 1.9 Triglycerides Level 102 Cholesterol Level 136 LDL Cholesterol, Calculated 70 HDL Cholesterol 46 Cholesterol/HDL Ratio 2.9 Medications Current Medications Ondansetron HCl (Zofran Inj) 4 mg Q6H PRN IV NAUSEA AND/OR VOMITING Last administered on 05/13/17 08:48; Admin Dose 4 MG; Start 05/08/17 at 05:00 Acetaminophen (Tylenol Tab) 650 mg Q6H PRN PO PAIN LEVEL 1-3 OR FEVER; Start at 05:00 Alprazolam (Xanax) 0.25 mg Q8H PRN PO ANXIETY Last administered on 05/14/17 09: 00; Admin Dose 0.25 MG; Start 05/08/17 at 05:30 Aspirin (Halfprin) 81 mg DAILY PO Last administered on 05/14/17 08:58; Admin Dose 81 MG; Start 05/08/17 at 09:00 Furosemide (Lasix) 20 mg DAILY@06 PO ; Start 05/08/17 at 06:00; Status Future Hold Isosorbide Dinitrate (Isordil) 20 mg TID PO Last administered on 05/14/17 08:58 ; Admin Dose 20 MG; Start 05/08/17 at 09:00 Losartan Potassium (Cozaar) 100 mg DAILY PO Last administered on 05/14/17 08:59 ; Admin Dose 100 MG; Start 05/08/17 at 09:00 Sertraline HCl (Zoloft) 25 mg DAILY PO Last administered on 05/14/17 08:58; Admin Dose 25 MG; Start 05/08/17 at 09:00 Prednisone (Prednisone) 40 mg DAILY PO Last administered on 05/14/17 08:58; Admin Dose 40 MG; Start 05/09/17 at 09:00 Levofloxacin (Levaquin) 750 mg Q48H PO Last administered on 05/14/17 05:22; Admin Dose 750 MG; Start 05/10/17 at 06:00 Guaifenesin (Mucinex) 600 mg BID PO Last administered on 05/14/17 08:59; Admin Dose 600 MG; Start 05/10/17 at 21:00 Pantoprazole (Protonix Tab) 40 mg DAILY@06 PO Last administered on 05/14/17 05: 22; Admin Dose 40 MG; Start 05/11/17 at 13:00 Al Hydrox/Mg Hydrox/Simethicone (Mag-Al Plus) 30 ml Q6H PRN PO GASTROINTESTINAL UPSET Last administered on 05/11/17 23:11; Admin Dose 30 ML; Start 05/11/17 at 23:00 Metoclopramide HCl (Reglan) 10 mg Q6H PRN IV VOMITTING Last administered on 05/12 09:19; Admin Dose 10 MG; Start 05/11/17 at 23:00 Polyethylene Glycol (Miralax) 17 gm DAILY PO Last administered on 05/14/17 08: 59; Admin Dose 17 GM; Start 05/12/17 at 09:00 Assessment/Plan Chief Complaint/Hosp Course Additional Assessment/Plan IMP: 1. AE-IPF 2. Chronic CO2 retention due to restrictive lung disease 3. Nausea/vomiting--likely related to Esbriet 4. Possible component of diastolic heart failure RECS: 1. Continue steroids 2. Keep I <O's 3. Titrate FiO2 to keep SpO2 88-92% 4. Hold Esbriet 5. [facility] eval. discussed with patient she agrees. 6. Trial of Lasix. Problems: N[facility] BENSON [facility], [facility] May 14, 2017 14:56
[2017-05-14] MEDS: FUROSEMIDE 40 MG INJ IV SCH (15:00)
[2017-05-14] MEDS: ONDANSETRON 4 MG INJ IV PRN (20:42)
[2017-05-15] VITALS (17 sets, daily range): BP systolic 110–139; BP diastolic 70–84; PULSE 79–108; RESP 14–26
[2017-05-15] MEDS: ALBUTEROL/IPRATROPIUM (NEB) 3 ML AMP HHN SCH ×6 (00:35→20:36)
[2017-05-15] MEDS: PANTOPRAZOLE (EC) 40 MG TAB PO SCH (05:35)
[2017-05-15] MEDS: GUAIFENESIN LA 600 MG TABSR PO SCH ×2 (08:34→20:55)
[2017-05-15] MEDS: predniSONE 20 MG TAB PO SCH (08:34)
[2017-05-15] MEDS: ASPIRIN (EC) 81 MG TAB PO SCH (08:34)
[2017-05-15] MEDS: LOSARTAN 50 MG TAB PO SCH (08:35)
[2017-05-15] MEDS: ISOSORBIDE DINITRATE 20 MG TAB PO SCH ×3 (08:35→20:55)
[2017-05-15] MEDS: POLYETHYLENE GLYCOL 17 GM PACKET PO SCH (08:35)
[2017-05-15] MEDS: SERTRALINE 50 MG TAB PO SCH (08:35)
[2017-05-15] MEDS: FUROSEMIDE 40 MG INJ IV SCH (08:35)
--- NOTE | 2017-05-15 12:23 | CONS ---
Date/Time of Note Date/Time of Note DATE: 05/15/17 TIME: 12:23 Consult Date/Type/Reason Admit Date/Time May 08, 2017 at 03:10 Initial Consult Date 05/08/17 Type of Consultation: Pulmonary Subjective Patient states her breathing is somewhat better this morning still has significant desaturation on mild exertion Objective Vital Signs Date Time Temp Pulse Resp B/P Pulse Ox O2 Delivery O2 Flow Rate FiO2 05/15/17 12:07 98.0 59 16 139/79 91 05/15/17 08:35 Nasal Cannula 4.0 05/15/17 05:11 40 Intake and Output 05/14/17 05/14/17 05/15/17 15:00 23:00 07:00 Intake Total 400 ml 250 ml Balance 400 ml 250 ml Exam GENERAL: Chronically ill-appearing lady comfortable at rest VITAL SIGNS: per chart NECK: Supple. No JVD or lymphadenopathy. CARDIAC EXAM: S1, S2. No added sounds or murmurs. CHEST: diminished air entry bilaterally with bibasilar rales ABDOMEN: Soft, nontender. No guarding or rebound. EXTREMITIES: No cyanosis, clubbing or edema. NEUROLOGIC: Generalized weakness. No focal deficits. Results/Medications Result Diagram: 05/14/17 0648 05/14/17 0645 Medications Current Medications Ondansetron HCl (Zofran Inj) 4 mg Q6H PRN IV NAUSEA AND/OR VOMITING Last administered on 05/14/17 20:42; Admin Dose 4 MG; Start 05/08/17 at 05:00 Acetaminophen (Tylenol Tab) 650 mg Q6H PRN PO PAIN LEVEL 1-3 OR FEVER; Start at 05:00 Alprazolam (Xanax) 0.25 mg Q8H PRN PO ANXIETY Last administered on 05/14/17 20: 42; Admin Dose 0.25 MG; Start 05/08/17 at 05:30 Aspirin (Halfprin) 81 mg DAILY PO Last administered on 05/15/17 08:34; Admin Dose 81 MG; Start 05/08/17 at 09:00 Isosorbide Dinitrate (Isordil) 20 mg TID PO Last administered on 05/15/17 08:35 ; Admin Dose 20 MG; Start 05/08/17 at 09:00 Losartan Potassium (Cozaar) 100 mg DAILY PO Last administered on 05/15/17 08:35 ; Admin Dose 100 MG; Start 05/08/17 at 09:00 Sertraline HCl (Zoloft) 25 mg DAILY PO Last administered on 05/15/17 08:35; Admin Dose 25 MG; Start 05/08/17 at 09:00 Prednisone (Prednisone) 40 mg DAILY PO Last administered on 05/15/17 08:34; Admin Dose 40 MG; Start 05/09/17 at 09:00 Levofloxacin (Levaquin) 750 mg Q48H PO Last administered on 05/14/17 05:22; Admin Dose 750 MG; Start 05/10/17 at 06:00 Guaifenesin (Mucinex) 600 mg BID PO Last administered on 05/15/17 08:34; Admin Dose 600 MG; Start 05/10/17 at 21:00 Pantoprazole (Protonix Tab) 40 mg DAILY@06 PO Last administered on 05/15/17 05: 35; Admin Dose 40 MG; Start 05/11/17 at 13:00 Al Hydrox/Mg Hydrox/Simethicone (Mag-Al Plus) 30 ml Q6H PRN PO GASTROINTESTINAL UPSET Last administered on 05/11/17 23:11; Admin Dose 30 ML; Start 05/11/17 at 23:00 Metoclopramide HCl (Reglan) 10 mg Q6H PRN IV VOMITTING Last administered on 05/12 09:19; Admin Dose 10 MG; Start 05/11/17 at 23:00 Polyethylene Glycol (Miralax) 17 gm DAILY PO Last administered on 05/15/17 08: 35; Admin Dose 17 GM; Start 05/12/17 at 09:00 Furosemide (Lasix) 40 mg DAILY IV Last administered on 05/15/17 08:35; Admin Dose 40 MG; Start 05/14/17 at 15:00 Assessment/Plan Chief Complaint/Hosp Course Additional Assessment/Plan IMP: 1. AE-IPF 2. Chronic CO2 retention due to restrictive lung disease 3. Nausea/vomiting--likely related to Esbriet 4. Possible component of diastolic heart failure RECS: 1. Continue steroids 2. Keep I <O's 3. Titrate FiO2 to keep SpO2 88-92% 4. Hold Esbriet 5. [facility] eval. discussed with patient she agrees. 6. Trial of Lasix. Problems: [facility], [facility] May 15, 2017 12:23
--- NOTE | 2017-05-15 13:16 | PN ---
Date/Time of Note Date/Time of Note DATE: 05/15/17 TIME: 13:15 Assessment/Plan VTE Prophylaxis VTE Prophylaxis Intervention: SCD's Lines/Catheters IV [facility]ter Type (from [facility] Urinary Cath still in place: No Assessment/Plan Chief Complaint/Hosp Course Slowly improving on tapering steroids Problems: Assessment/Plan 1. Acute on chronic hypercapnic and hypoxic respiratory failure secondary to exacerbation of idiopathic pulmonary fibrosis. Continue supplemental oxygen. Continue inhaled bronchodilators. Continue tapering dose of steroids. 2. Pulmonary fibrosis. Continue supplemental oxygen. Management as per pulmonary. Pirfenidone on hold as per pulmonary. 3. Essential hypertension. Continue anti-hypertensives. Blood pressure well controlled. 4. Depression. Continue SSRIs. 5. Fluids, electrolytes, and nutrition. Low-cholesterol diet. 6. DVT prophylaxis. Bilateral sequential compression devices. 7. Gastrointestinal prophylaxis. Proton pump inhibitors. 8. Plan. Continue supplemental oxygen. Continue inhaled bronchodilators. Steroid taper as per pulmonary. Plan is to transfer the patient to [facility] once more stable. Subjective 24 Hr Interval Summary Free Text/Dictation Chart reviewed. Patient on 4 L nasal cannula saturating 98%. Shortness of breath is somewhat better today. Exam/Review of Systems Vital Signs Vitals Vital Signs Date Time Temp Pulse Resp B/P Pulse Ox O2 Delivery O2 Flow Rate FiO2 05/15/17 12:25 93 05/15/17 12:07 98.0 16 139/79 91 05/15/17 08:35 Nasal Cannula 4.0 05/15/17 05:11 40 Intake and Output 05/14/17 05/14/17 05/15/17 15:00 23:00 07:00 Intake Total 400 ml 250 ml Balance 400 ml 250 ml Exam General: Adequately build 67 year-old female lying in bed in no apparent distress. HEENT: Normocephalic, atraumatic. Eyes: Anicteric sclerae, conjunctivae clear. ENT: Nasal septum midline, oral mucosa moist. Neck supple, no JVD noticed. Respiratory: Bilaterally diminished breath sounds. Use of accessory muscles of respiration. Bilateral fine rales. Cardiovascular: S1, S2 heard. No murmurs or gallops. Abdomen: Soft, nontender, and nondistended. Bowel sounds positive in all 4 quadrants. Genitourinary: Deferred. Extremities: No cyanosis, no edema. Clubbing of fingers of bilateral hands. Peripheral pulses palpable. Neurologic: Cranial nerves II through XII grossly intact. The patient is awake, alert, and oriented. Skin: Normal skin turgor. No skin rashes. Results Result Diagram: 05/14/1748 05/14/17 0645 Medications Medications Current Medications Ondansetron HCl (Zofran Inj) 4 mg Q6H PRN IV NAUSEA AND/OR VOMITING Last administered on 05/14/17 20:42; Admin Dose 4 MG; Start 05/08/17 at 05:00 Acetaminophen (Tylenol Tab) 650 mg Q6H PRN PO PAIN LEVEL 1-3 OR FEVER; Start at 05:00 Alprazolam (Xanax) 0.25 mg Q8H PRN PO ANXIETY Last administered on 05/14/17 20: 42; Admin Dose 0.25 MG; Start 05/08/17 at 05:30 Aspirin (Halfprin) 81 mg DAILY PO Last administered on 05/15/17 08:34; Admin Dose 81 MG; Start 05/08/17 at 09:00 Isosorbide Dinitrate (Isordil) 20 mg TID PO Last administered on 05/15/17 08:35 ; Admin Dose 20 MG; Start 05/08/17 at 09:00 Losartan Potassium (Cozaar) 100 mg DAILY PO Last administered on 05/15/17 08:35 ; Admin Dose 100 MG; Start 05/08/17 at 09:00 Sertraline HCl (Zoloft) 25 mg DAILY PO Last administered on 05/15/17 08:35; Admin Dose 25 MG; Start 05/08/17 at 09:00 Levofloxacin (Levaquin) 750 mg Q48H PO Last administered on 05/14/17 05:22; Admin Dose 750 MG; Start 05/10/17 at 06:00 Guaifenesin (Mucinex) 600 mg BID PO Last administered on 05/15/17 08:34; Admin Dose 600 MG; Start 05/10/17 at 21:00 Pantoprazole (Protonix Tab) 40 mg DAILY@06 PO Last administered on 05/15/17 05: 35; Admin Dose 40 MG; Start 05/11/17 at 13:00 Al Hydrox/Mg Hydrox/Simethicone (Mag-Al Plus) 30 ml Q6H PRN PO GASTROINTESTINAL UPSET Last administered on 05/11/17 23:11; Admin Dose 30 ML; Start 05/11/17 at 23:00 Metoclopramide HCl (Reglan) 10 mg Q6H PRN IV VOMITTING Last administered on 05/12 09:19; Admin Dose 10 MG; Start 05/11/17 at 23:00 Polyethylene Glycol (Miralax) 17 gm DAILY PO Last administered on 05/15/17 08: 35; Admin Dose 17 GM; Start 05/12/17 at 09:00 Furosemide (Lasix) 40 mg DAILY IV Last administered on 05/15/17 08:35; Admin Dose 40 MG; Start 05/14/17 at 15:00 Methylprednisolone Sodium Succinate (Solu-Medrol) 40 mg Q12 IV ; Start 05/15/17 at 12:30 MEHNAZ DOUGHERTY MD May 15, 2017 13:16
[2017-05-15] MEDS: METHYLPREDNISOLONE 40 MG INJ IV SCH ×2 (14:02→20:55)
[2017-05-16] VITALS (13 sets, daily range): BP systolic 109–136; BP diastolic 64–84; PULSE 81–107; RESP 20–24
[2017-05-16] MEDS: ALBUTEROL/IPRATROPIUM (NEB) 3 ML AMP HHN SCH ×5 (00:37→16:49)
[2017-05-16] MEDS: PANTOPRAZOLE (EC) 40 MG TAB PO SCH (05:28)
[2017-05-16] MEDS: LEVOFLOXACIN 750 MG TABLET PO SCH (05:28)
[2017-05-16] MEDS: SERTRALINE 50 MG TAB PO SCH (08:15)
[2017-05-16] MEDS: ASPIRIN (EC) 81 MG TAB PO SCH (08:15)
[2017-05-16] MEDS: METHYLPREDNISOLONE 40 MG INJ IV SCH (08:15)
[2017-05-16] MEDS: GUAIFENESIN LA 600 MG TABSR PO SCH (08:15)
[2017-05-16] MEDS: POLYETHYLENE GLYCOL 17 GM PACKET PO SCH (08:15)
[2017-05-16] MEDS: ISOSORBIDE DINITRATE 20 MG TAB PO SCH ×2 (08:16→13:07)
[2017-05-16] MEDS: FUROSEMIDE 40 MG INJ IV SCH (08:16)
[2017-05-16] MEDS: LOSARTAN 50 MG TAB PO SCH (08:16)
--- NOTE | 2017-05-16 11:28 | PN ---
Date/Time of Note Date/Time of Note DATE: 05/16/17 TIME: 11:25 Assessment/Plan VTE Prophylaxis VTE Prophylaxis Intervention: SCD's Lines/Catheters IV Catheter Type (from [facility]): Saline Lock Urinary Cath still in place: No Assessment/Plan Assessment/Plan 1. AE-IPF 2. Chronic CO2 retention due to restrictive lung disease 3. Nausea/vomiting--likely related to Esbriet 4. Possible component of diastolic heart failure RECS: 1. Continue steroids 2. Keep I <O's 3. Titrate FiO2 to keep SpO2 88-92% 4. Hold Esbriet 5. [facility] eval. discussed with patient she agrees. IV lasix 40mg IV daily, IV solu-medrol and PO levaquin will wait for [facility] to accept pt Subjective 24 Hr Interval Summary Free Text/Dictation no acute events,[facility] transfer requested, BP stable Exam/Review of Systems Vital Signs Vitals Vital Signs Date Time Temp Pulse Resp B/P Pulse Ox O2 Delivery O2 Flow Rate FiO2 05/16/17 09:35 107 05/16/17 08:17 5.0 05/16/17 08:17 26 95 Nasal Cannula 05/16/17 07:41 98.6 114/64 05/16/17 05:22 40 Intake and Output 05/15/17 05/15/17 05/16/17 15:00 23:00 07:00 Intake Total 880 ml 600 ml Balance 880 ml 600 ml Exam GENERAL: Chronically ill-appearing lady comfortable at rest VITAL SIGNS: per chart NECK: Supple. No JVD or lymphadenopathy. CARDIAC EXAM: S1, S2. No added sounds or murmurs. CHEST: diminished air entry bilaterally with bibasilar rales ABDOMEN: Soft, nontender. No guarding or rebound. EXTREMITIES: No cyanosis, clubbing or edema. NEUROLOGIC: Generalized weakness. No focal deficits. Results Result Diagram: 05/14/17 0648 05/14/17 0645 Medications Medications Current Medications Ondansetron HCl (Zofran Inj) 4 mg Q6H PRN IV NAUSEA AND/OR VOMITING Last administered on 05/14/17t 20:42; Admin Dose 4 MG; Start 05/08/17 at 05:00 Acetaminophen (Tylenol Tab) 650 mg Q6H PRN PO PAIN LEVEL 1-3 OR FEVER; Start at 05:00 Alprazolam (Xanax) 0.25 mg Q8H PRN PO ANXIETY Last administered on 05/14/17 20: 42; Admin Dose 0.25 MG; Start 05/08/17 at 05:30 Aspirin (Halfprin) 81 mg DAILY PO Last administered on 05/16/17 08:15; Admin Dose 81 MG; Start 05/08/17 at 09:00 Isosorbide Dinitrate (Isordil) 20 mg TID PO Last administered on 05/16/17 08:16 ; Admin Dose 20 MG; Start 05/08/17 at 09:00 Losartan Potassium (Cozaar) 100 mg DAILY PO Last administered on 05/16/17 08:16 ; Admin Dose 100 MG; Start 05/08/17 at 09:00 Sertraline HCl (Zoloft) 25 mg DAILY PO Last administered on 05/16/17 08:15; Admin Dose 25 MG; Start 05/08/17 at 09:00 Levofloxacin (Levaquin) 750 mg Q48H PO Last administered on 05/16/17 05:28; Admin Dose 750 MG; Start 05/10/17 at 06:00 Guaifenesin (Mucinex) 600 mg BID PO Last administered on 05/16/17 08:15; Admin Dose 600 MG; Start 05/10/17 at 21:00 Pantoprazole (Protonix Tab) 40 mg DAILY@06 PO Last administered on 05/16/17 05: 28; Admin Dose 40 MG; Start 05/11/17 at 13:00 Al Hydrox/Mg Hydrox/Simethicone (Mag-Al Plus) 30 ml Q6H PRN PO GASTROINTESTINAL UPSET Last administered on 05/11/17 23:11; Admin Dose 30 ML; Start 05/11/17 at 23:00 Metoclopramide HCl (Reglan) 10 mg Q6H PRN IV VOMITTING Last administered on 05/12 09:19; Admin Dose 10 MG; Start 05/11/17 at 23:00 Polyethylene Glycol (Miralax) 17 gm DAILY PO Last administered on 05/16/17 08: 15; Admin Dose 17 GM; Start 05/12/17 at 09:00 Furosemide (Lasix) 40 mg DAILY IV Last administered on 05/16/17 08:16; Admin Dose 40 MG; Start 05/14/17 at 15:00 Methylprednisolone Sodium Succinate (Solu-Medrol) 40 mg Q12 IV Last administered on 05/16/17 08:15; Admin Dose 40 MG; Start 05/15/17 at 12:30 PATRIA MORALEZ MD May 16, 2017 11:28
--- NOTE | 2017-05-16 11:30 | PDOCDIS ---
Discharge Instructions CONDITION Patient Condition: Good HOME CARE INSTRUCTIONS: Special Diet: Cardiac ACTIVITY: Activity Restrictions: Slowly Increase Activity Rest between Activity Avoid heavy lifting Do not operate Power Tool FOLLOW UP/APPOINTMENTS [facility] 2017 11[facility]29
--- NOTE | 2017-05-16 13:26 | CONS ---
Date/Time of Note Date/Time of Note DATE: 05/16/17 TIME: 13:25 Consult Date/Type/Reason Admit Date/Time May 08, 2017 at 03:10 Initial Consult Date 05/08/17 Type of Consultation: Pulmonary Subjective Patient remains comfortable this morning no acute distress Objective Vital Signs Date Time Temp Pulse Resp B/P Pulse Ox O2 Delivery O2 Flow Rate FiO2 05/16/17 12:13 102 05/16/17 12:09 24 96 Nasal Cannula 5.0 05/16/17 11:29 98.0 136/68 05/16/17 05:22 40 Intake and Output 05/15/17 05/15/17 05/16/17 15:00 23:00 07:00 Intake Total 880 ml 600 ml Balance 880 ml 600 ml Exam GENERAL: Chronically ill-appearing lady comfortable at rest VITAL SIGNS: per chart NECK: Supple. No JVD or lymphadenopathy. CARDIAC EXAM: S1, S2. No added sounds or murmurs. CHEST: diminished air entry bilaterally with bibasilar rales ABDOMEN: Soft, nontender. No guarding or rebound. EXTREMITIES: No cyanosis, clubbing or edema. NEUROLOGIC: Generalized weakness. No focal deficits. Results/Medications Result Diagram: 05/14/17 0648 05/14/17 0645 Medications Current Medications Ondansetron HCl (Zofran Inj) 4 mg Q6H PRN IV NAUSEA AND/OR VOMITING Last administered on 05/14/17 20:42; Admin Dose 4 MG; Start 05/08/17 at 05:00 Acetaminophen (Tylenol Tab) 650 mg Q6H PRN PO PAIN LEVEL 1-3 OR FEVER; Start at 05:00 Alprazolam (Xanax) 0.25 mg Q8H PRN PO ANXIETY Last administered on 05/14/17 20: 42; Admin Dose 0.25 MG; Start 05/08/17 at 05:30 Aspirin (Halfprin) 81 mg DAILY PO Last administered on 05/16/17 08:15; Admin Dose 81 MG; Start 05/08/17 at 09:00 Isosorbide Dinitrate (Isordil) 20 mg TID PO Last administered on 05/16/17 13:07 ; Admin Dose 20 MG; Start 05/08/17 at 09:00 Losartan Potassium (Cozaar) 100 mg DAILY PO Last administered on 05/16/17 08:16 ; Admin Dose 100 MG; Start 05/08/17 at 09:00 Sertraline HCl (Zoloft) 25 mg DAILY PO Last administered on 05/16/17 08:15; Admin Dose 25 MG; Start 05/08/17 at 09:00 Levofloxacin (Levaquin) 750 mg Q48H PO Last administered on 05/16/17 05:28; Admin Dose 750 MG; Start 05/10/17 at 06:00 Guaifenesin (Mucinex) 600 mg BID PO Last administered on 05/16/17 08:15; Admin Dose 600 MG; Start 05/10/17 at 21:00 Pantoprazole (Protonix Tab) 40 mg DAILY@06 PO Last administered on 05/16/17 05: 28; Admin Dose 40 MG; Start 05/11/17 at 13:00 Al Hydrox/Mg Hydrox/Simethicone (Mag-Al Plus) 30 ml Q6H PRN PO GASTROINTESTINAL UPSET Last administered on 05/11/17 23:11; Admin Dose 30 ML; Start 05/11/17 at 23:00 Metoclopramide HCl (Reglan) 10 mg Q6H PRN IV VOMITTING Last administered on 05/12 09:19; Admin Dose 10 MG; Start 05/11/17 at 23:00 Polyethylene Glycol (Miralax) 17 gm DAILY PO Last administered on 05/16/17 08: 15; Admin Dose 17 GM; Start 05/12/17 at 09:00 Furosemide (Lasix) 40 mg DAILY IV Last administered on 05/16/17 08:16; Admin Dose 40 MG; Start 05/14/17 at 15:00 Methylprednisolone Sodium Succinate (Solu-Medrol) 40 mg Q12 IV Last administered on 05/16/17 08:15; Admin Dose 40 MG; Start 05/15/17 at 12:30 Assessment/Plan Chief Complaint/Hosp Course Additional Assessment/Plan IMP: 1. AE-IPF 2. Chronic CO2 retention due to restrictive lung disease 3. Nausea/vomiting--likely related to Esbriet 4. Possible component of diastolic heart failure RECS: 1. Continue steroids 2. Keep I <O's 3. Titrate FiO2 to keep SpO2 88-92% 4. Hold Esbriet 5. Continue gentle diuresis transfer to [place] today. Problems: NAYLA BENSON MD, [facility] May 16, 2017 13:26
== END 2017-05-16 19:25 | DRG 196 ==
LOC: E/R 00:42 → MS4 03:10
PROVIDERS: ADMIT Family Medicine; ATTEND Family Medicine
PROC: 5A09357 Assistance with Respiratory Ventilation, Less than 24 Consecutive Hours, Continuous Positive Airway Pressure (ICD-10-PCS; principal; 2017-05-08)
PROC: 4A133R1 Monitoring of Arterial Saturation, Peripheral, Percutaneous Approach (ICD-10-PCS; 2017-05-08)
DX: J84.112 Idiopathic pulmonary fibrosis (principal); J96.22 Acute and chronic respiratory failure with hypercapnia; J96.21 Acute and chronic respiratory failure with hypoxia; E87.2 Acidosis; I50.30 Unspecified diastolic (congestive) heart failure; R30.0 Dysuria; F41.9 Anxiety disorder, unspecified; F32.9 Major depressive disorder, single episode, unspecified; K21.9 Gastro-esophageal reflux disease without esophagitis; J44.9 Chronic obstructive pulmonary disease, unspecified; I11.0 Hypertensive heart disease with heart failure; R11.2 Nausea with vomiting, unspecified; Z99.81 Dependence on supplemental oxygen; Z79.82 Long term (current) use of aspirin; Z88.0 Allergy status to penicillin; Z87.891 Personal history of nicotine dependence; T48.995A Adverse effect of other agents primarily acting on the respiratory system, initial encounter; Y92.230 Patient room in hospital as the place of occurrence of the external cause
CPT/HCPCS: 36600; 71010; 76536; 80048; 80053; 80061; 81001; 82550; 82553; 82803; 83036; 83735; 83880; 84100; 84145; 84443; 84484; 85025; 86403; 87040; 87086; 87275; 87276; 87279; 87280; 94640; 94644; 94660; 94664; 96374; 96375; J1940; C9113; J0696; J1956; J2405; J2765; J2920; J2930; J3370; J7040; J7512